=== PATIENT | female | born 1935 | race Caucasian/White ===

== ENCOUNTER → 2016-07-20 | Outpatient (CLI) | payer OTHER, BC ==
[~2016-07-20] MED LIST: ALLO300T2 PO; CHOL2000 PO; CYAN100020 PO; EDARBYCLOR PO; GABA-113 PO; LEVO25TA34 PO; LSX20 PO; METO100T7 PO; MULTCAP7 PO; OMEG10007 PO; RXC5 PO
--- NOTE | 2016-07-20 12:52 | DIAGNOSTIC IMAGING REPORT ---
ULTRASOUND OF THE CAROTID ARTERIES CLINICAL HISTORY: Hollenhorst plaque of the right eye. Visual changes. COMPARISON STUDY: No priors. TECHNIQUE: Real-time, grayscale, and color Doppler sonography of the carotid arteries is performed. Images are reviewed in the transverse and longitudinal planes. FINDINGS: Blood pressure in the right arm measures 184/107 and blood pressure in the left arm measures 205/105. The carotid arteries are patent bilaterally and demonstrate antegrade flow. There is mild echogenic shadowing atherosclerotic plaque seen bilaterally. Normal doppler arterial waveforms are seen throughout. Velocity measurements are listed below. Common carotid peak systolic velocity (cm/sec): RIGHT: 62 LEFT: 59 ICA proximal peak systolic velocity (cm/sec): RIGHT: 48 LEFT: 63 ICA mid peak systolic velocity (cm/sec): RIGHT: 61 LEFT: 56 ICA distal peak systolic velocity (cm/sec): RIGHT: 66 LEFT: 71 ICA/CC peak systolic ratio: RIGHT: 1.1 LEFT: 1.2 Antegrade flow was shown in the vertebral arteries. The external carotid arteries are patent. IMPRESSION: 1. There is no sonographic evidence of hemodynamically significant stenosis in the right or left carotid arterial system. 2. Antegrade flow is shown in the vertebral arteries. 3. Hypertension as above. Electronically signed by: Romain aVrgas M.D. 07/20/2016 12:50 PM Dictated Date/Time: 07/20/2016 12:47 PM
== END ==
LOC: C.ULTRBC 11:58
PROVIDERS: ATTEND Internal Medicine
DX: H34.211 Partial retinal artery occlusion, right eye (principal)

== ENCOUNTER → 2017-02-22 | Outpatient (CLI) | payer OTHER, BC ==
[2017-02-22 16:59] LABS: BASO % 1.3 %; BASO ABS # 0.08 K/uL (0-0.2); COMPLETE YES; EOS % 3.3 %; HEMATOCRIT 40.6 % (37-47); IG% 0.3 %; LYMPH % 37.6 %; LYMPH ABS # 2.27 K/uL (1.2-3.4); MEAN CELL VOLUME 92.5 fL (80-100); MEAN CORPUSCULAR HEMOGLOBIN 31.7 pg (25-34); MEAN CORPUSCULAR HGB CONC 34.2 g/dl (32-36); MEAN PLATELET VOLUME 11.7 fL (7.4-10.4); NEUT % 51.5 %; PLATELET COUNT 196 K/uL (130-400); RED BLOOD COUNT 4.39 M/uL (4.2-5.4); WHITE BLOOD COUNT 6.04 K/uL (4.8-10.8)
[2017-02-22 17:07] LABS: ALT/SGPT 36 U/L (12-78); AST/SGOT 20 U/L (15-37); BLOOD UREA NITROGEN 19 mg/dl (7-18); BUN/CREATININE RATIO 21.7 (10-20); CALCIUM 9.6 mg/dl (8.5-10.1); CARBON DIOXIDE 32 mmol/L (21-32); CHLORIDE 99 mmol/L (98-107); CREATININE 0.86 mg/dl (0.60-1.20); GLUCOSE 299 mg/dl (70-99); SODIUM 134 mmol/L (136-145)
[2017-02-22 17:17] LABS: ALB/GLOB RATIO 1.1 (0.9-2); ALKALINE PHOSPHATASE 142 U/L (45-117); CHOLESTEROL 145 mg/dl (0-200); CHOLESTEROL/HDL RATIO 4.8; HDL CHOLESTEROL 30 mg/dl; LDL CHOLESTEROL CALCULATED 72 mg/dl; TRIGLYCERIDES 214 mg/dl (0-150); VERY LOW DENSITY LIPOPROT CALC 43 mg/dl
[2017-02-23 05:20] LABS: ESTIMATED AVERAGE GLUCOSE 209 mg/dl; HA1C FLAG Normal (Normal)
== END | disposition home or self-care (01) ==
LOC: C.LABBC 13:15
PROVIDERS: ATTEND Internal Medicine
DX: M19.90 Unspecified osteoarthritis, unspecified site (principal); I10 Essential (primary) hypertension; M81.0 Age-related osteoporosis without current pathological fracture; R73.9 Hyperglycemia, unspecified; E03.9 Hypothyroidism, unspecified; R73.03 Prediabetes

== ENCOUNTER 2017-03-10 07:33 | Observation (INO) | payer OTHER, BC ==
[~2017-03-10] VITALS: Ht 160 cm; Wt 72.2 kg
[2017-03-10 07:38] VITALS: Ht 160 cm; Wt 72.2 kg
[2017-03-10] MEDS ORDERED: LEVO25TA5 PO (08:32)
[2017-03-10] MEDS ORDERED: TPRSR100 PO (08:32)
[2017-03-10] MEDS ORDERED: GABA1CAP4 PO (08:32)
[2017-03-10] MEDS ORDERED: CHOL100010 PO (08:32)
[2017-03-10] MEDS ORDERED: ALL100 PO (08:32)
[2017-03-10] MEDS ORDERED: EDARBI PO (08:32)
[2017-03-10] MEDS ORDERED: LSX20 PO (08:32)
[2017-03-10] MEDS ORDERED: COEN100C11 PO (08:32)
[2017-03-10] MEDS ORDERED: MULTCAP7 PO (08:32)
[2017-03-10] MEDS ORDERED: CYAN500T PO (08:32)
[2017-03-10 09:09] LABS: BASO % 0.6 %; BASO ABS # 0.04 K/uL (0-0.2); COMPLETE YES; EOS % 2.7 %; HEMATOCRIT 37.6 % (37-47); IG% 0.2 %; LYMPH % 22.1 %; MEAN CELL VOLUME 92.2 fL (80-100); MEAN CORPUSCULAR HEMOGLOBIN 31.6 pg (25-34); MEAN CORPUSCULAR HGB CONC 34.3 g/dl (32-36); MEAN PLATELET VOLUME 10.9 fL (7.4-10.4); MONO % 7.4 %; PLATELET COUNT 169 K/uL (130-400); RED BLOOD COUNT 4.08 M/uL (4.2-5.4); WHITE BLOOD COUNT 6.34 K/uL (4.8-10.8)
[2017-03-10 09:26] LABS: ALT/SGPT 30 U/L (12-78); BLOOD UREA NITROGEN 20 mg/dl (7-18); BUN/CREATININE RATIO 29.2 (10-20); CALCIUM 9.4 mg/dl (8.5-10.1); CARBON DIOXIDE 27 mmol/L (21-32); CHLORIDE 104 mmol/L (98-107); CREATININE 0.67 mg/dl (0.60-1.20); GLUCOSE 132 mg/dl (70-99); POTASSIUM 3.5 mmol/L (3.5-5.1); SODIUM 141 mmol/L (136-145)
[2017-03-10 09:37] LABS: ALB/GLOB RATIO 1.3 (0.9-2); ALKALINE PHOSPHATASE 118 U/L (45-117); AST/SGOT 23 U/L (15-37)
--- NOTE | 2017-03-10 09:47 | DIAGNOSTIC IMAGING REPORT ---
ABDOMINAL ULTRASOUND, RIGHT UPPER QUADRANT HISTORY: Epigastric pain. COMPARISON: None. FINDINGS: Exam is moderately compromised by suboptimal penetration. The common bile duct is dilated, measuring 0.9 cm in caliber. There is a 1.5 cm echogenic focus likely within the mid common bile duct which favors a common bile duct calculus. The gallbladder is surgically absent. Moderate pancreatic ductal dilatation is noted. The main pancreatic duct measures 7 mm in caliber. The pancreatic head and tail are partially obscured. There is slight prominence of the right renal collection system without talia hydronephrosis. IMPRESSION: Mild biliary ductal dilatation status post cholecystectomy. 1.5 cm echogenic shadowing structure projecting over the mid to distal common bile duct which favors a common bile duct calculus. Moderate pancreatic ductal dilatation which may be related to the suspected common bile duct calculus or occult pancreatic lesion. The findings could be correlated with liver function tests and MRCP if indicated. Electronically signed by: Russell Ramey M.D. 03/10/2017 9:46 AM Dictated Date/Time: 03/10/2017 9:36 AM
--- NOTE | 2017-03-10 10:05 | DIAGNOSTIC IMAGING REPORT ---
CHEST 2 VIEWS ROUTINE CLINICAL HISTORY: fatigue, epigastric pain pain COMPARISON STUDY: 06/27/2014 FINDINGS: Plaque atelectasis left base. Heart top limits normal in terms of size. Lungs are clear. Surgical clips of the thoracic inlet are again noted and are unchanged. IMPRESSION: Minimal platelike atelectasis left base. Otherwise negative study. The above report was generated using voice recognition software. It may contain grammatical, syntax or spelling errors. Electronically signed by: Santana Capellan M.D. 03/10/2017 10:03 AM Dictated Date/Time: 03/10/2017 10:03 AM
[2017-03-10 10:06] LABS: LYME DISEASE AB IGG NEG (NEG); LYME DISEASE AB IGM NEG (NEG)
[2017-03-10] MEDS ORDERED: SODIUM CHLORIDE 0.9% 1000ML 1,000 ML IV STA ×2 (10:35→16:24)
[2017-03-10] MEDS ORDERED: OPTIRAY 320 IV PRN (10:45)
[2017-03-10 10:58] LABS: URINE APPEARANCE CLEAR (CLEAR); URINE BILIRUBIN NEG (NEG); URINE COLOR DK YELLOW; URINE EPITHELIAL CELL AUTO >30 /lpf (0-5); URINE NITRITE NEG (NEG); URINE SPECIFIC GRAVITY 1.026 (1.000-1.030); UROBILINOGEN NEG (NEG); ZZUR CULT IF INDIC CLEAN CATCH YES
[2017-03-10 11:02] LABS: MANUAL MICROSCOPIC REQUIRED? NO; REVIEW REQ? YES
--- NOTE | 2017-03-10 11:10 | DIAGNOSTIC IMAGING REPORT ---
ABD/PELVIS IV CONTRAST ONLY CT DOSE: 739.37 mGycm HISTORY: Pain Epigastric/abdominal pain TECHNIQUE: Multiaxial CT images of the abdomen and pelvis were performed following the use of intravenous contrast. A dose lowering technique was utilized adhering to the principles of ALARA. COMPARISON STUDY: Limited ultrasound dated 03/10/2017 FINDINGS: Lung bases are clear. Prior cholecystectomy. Liver is uniform. Moderate prominence the extra hepatic common bile duct with the possibility of a 7 mm calculus within the mid to distal common duct. There is also dilatation of the pancreatic duct to maximum diameter of 6.5 mm. This calcification potentially is of the distal aspect of the pancreatic duct at its origin with the common bile duct. A well-defined mass is not easily appreciated. Left kidney as well as right kidney are negative for hydronephrosis. There is mild gastric distention. The bowel pattern overall is nonobstructive. Bladder is midline. There is no significant free fluid within the pelvic cul-de-sac. The rounded calcification measuring 2.5 cm of the pelvic inlet most likely representing calcified node. Bowel pattern again is nonobstructive throughout. There is no free fluid within the pelvic cul-de-sac. There are postoperative changes consistent with lumbar laminectomy and fusion. IMPRESSION: 1. 6 mm calcification at the juncture of the pancreatic and common bile duct. This potentially is within the common bile duct and/or less likely distal pancreatic duct 2. This appears to be creating dilatation of the pancreatic duct as well as the proximal basilar ductal system. 3. MRCP is suggested if possible. 4. Nonobstructing 9 mm calcification central right renal pelvis. The above report was generated using voice recognition software. It may contain grammatical, syntax or spelling errors. Electronically signed by: Santana Capellan M.D. 03/10/2017 11:09 AM Dictated Date/Time: 03/10/2017 11:00 AM
--- NOTE | 2017-03-10 11:49 | EMERGENCY ROOM VISIT NOTE ---
History First contact with patient: 07:44 Chief Complaint: NAUSEA Stated Complaint: NAUSEA,VOMITING - REACTION TO MEDICINE Nursing Triage Summary: pt reports GERD since end of Jan. started on metformen Feb 24 has been nauseated since that time. has had FU with PCP multiple times but is feeling no better pt reports started on omeprazole 1 week ago and this has helped the GERD History of Present Illness The patient is a 81 year old female who presents to the Emergency Room with complaints of epigastric pain times one month. The patient describes it as "intense", and states she feels bloated when she experiences the pain. The patient is having difficulty breathing due to the bloated sensation, and states she has been belching very frequently. She is unable to tolerate food or liquid , and often vomits after eating or drinking anything. She states she feels that food is fermenting in her stomach, and she eventually vomits it up. The vomiting has been worsening over the past 2 weeks. One month ago at the patient 's regular follow-up visit with her PCP, she had lab work completed which showed that the patient was diabetic. She did have a history of pre-diabetes, but this was a new, very sudden onset. The patient was started on Metformin at that time, which seemed to make her GI symptoms worse. The patient was told to start omeprazole last week due to the increase in heartburn and belching, and was eventually told to discontinue metformin yesterday. She states she has not noticed much of a difference since discontinuing the medication. The patient denies diarrhea, constipation, fever, recent illness or travel, or other associated symptoms. She denies any significant weight loss, but states she believes she may have lost a few pounds over the past few weeks. She is planning on leaving tomorrow to go to [place] for several months, so her daughter states she would like the patient's complaints addressed today if possible. Review of Systems A complete 10 point review of systems was reviewed with the patient with pertinent positives and negatives as per history of present illness. All else were negative. Past Medical/Surgical History Medical Problems: (1) CKD (chronic kidney disease), stage III (2) Gout (3) HTN (hypertension) (4) Nausea and vomiting Surgical Problems: (1) History of hysterectomy (2) History of lumbar laminectomy for spinal cord decompression (3) History of total bilateral knee replacement (4) S/P appendectomy (5) S/P carpal tunnel release (6) S/P cholecystectomy Social History Smoking Status: Never Smoker Current/Historical Medications Scheduled Allopurinol (Allopurinol), 400 MG PO DAILY Cholecalciferol (Vitamin D), 2,000 UNITS PO DAILY Coenzyme Q10 (Ubidecarenone) (Coq-10), 1 CAP PO DAILY Cyanocobalamin (Vitamin B-12), 1 TAB PO DAILY Furosemide (Furosemide), 20 MG PO DAILY Gabapentin (Gabapentin), 300 MG PO BID Levothyroxine Sodium (Levothyroxine Sodium), 25 MCG PO DAILY Metoprolol Succinate (Toprol Xl), 200 MG PO HS Multiple Vitamins W/ Minerals (Eye Vitamins), 1 CAP PO DAILY [Edarbi], 40 MG PO DAILY Physical Exam Vital Signs Date Time Temp Pulse Resp B/P (MAP) Pulse Ox O2 Delivery O2 Flow Rate FiO2 03/10/17 16:24 70 18 172/80 96 Room Air 03/10/17 14:39 82 18 176/94 97 Room Air 03/10/17 12:49 70 188/89 98 03/10/17 10:27 68 18 147/85 97 Room Air 03/10/17 07:38 36.5 84 18 190/92 96 Room Air Physical Exam VITALS: Vitals are noted on the nurse's note and reviewed by myself. Vital signs stable. GENERAL: This is a 81yo white female, in no acute distress, nondiaphoretic, well -developed well-nourished. SKIN: The skin was without rashes, erythema, edema, or bruising. There is no tenting of the skin. Capillary reflex less than 2 seconds. HEAD: Normocephalic atraumatic. EARS: External auditory canals clear, tympanic membranes pearly amaral without erythema or effusion bilaterally. EYES: Pupils equal round and reactive to light and accommodation. Conjunctivae without injection, sclerae without icterus. Extraocular movements intact. NOSE: Patent, turbinates without inflammation or discharge. No sinus tenderness. MOUTH: Mucous membranes moist. Tonsils are not enlarged. Pharynx without erythema or exudate. Uvula midline. Airway patent. Tongue does not deviate. NECK: Supple without nuchal rigidity. No lymphadenopathy. No thyromegaly. Cervical spine is nontender. No JVD. HEART: Regular rate and rhythm without murmurs gallops or rubs. LUNGS: Clear to auscultation bilaterally without wheezes, rales or rhonchi. No dullness to percussion. No retractions or accessory muscle use. ABDOMEN: Positive bowel sounds x 4. Normal tympanic percussion. Very mild tenderness in the epigastric area. Otherwise, abdomen was soft, nontender, without masses or organomegaly. Salgado sign negative. No guarding or rebound tenderness. MUSCULOSKELETAL: No muscle atrophy, erythema, or edema noted. Full range of motion without joint tenderness in all extremities. No tenderness to palpation. Normal gait. Strength 5/5 throughout. NEURO: Patient was alert and oriented to person place and time. Normal sensation to light and sharp touch. Deep tendon reflexes 2+ throughout. No focal neurological deficits. Medical Decision & Procedures ER Provider Diagnostic Interpretation: CBC was without leukocytosis, anemia, thrombocytopenia. CMP was without renal, hepatic, alert joint abnormalities. Random glucose was slightly elevated at 132. TSH was normal at 1.64. Cardiac enzymes were negative. Lipase was normal at 202. Lyme titers negative Urinalysis did show 3+ positive ketones. There were moderate leuk esterace and white blood cells, but the urine does appear contaminated with epithelial cells. The urine was positive for calcium oxalate crystals. CHEST 2 VIEWS ROUTINE CLINICAL HISTORY: fatigue, epigastric pain pain COMPARISON STUDY: 06/27/2014 FINDINGS: Plaque atelectasis left base. Heart top limits normal in terms of size. Lungs are clear. Surgical clips of the thoracic inlet are again noted and are unchanged. IMPRESSION: Minimal platelike atelectasis left base. Otherwise negative study. The above report was generated using voice recognition software. It may contain grammatical, syntax or spelling errors. Electronically signed by: Santana Capellan M.D. 03/10/2017 10:03 AM Dictated Date/Time: 03/10/2017 10:03 AM ABDOMINAL ULTRASOUND, RIGHT UPPER QUADRANT HISTORY: Epigastric pain. COMPARISON: None. FINDINGS: Exam is moderately compromised by suboptimal penetration. The common bile duct is dilated, measuring 0.9 cm in caliber. There is a 1.5 cm echogenic focus likely within the mid common bile duct which favors a common bile duct calculus. The gallbladder is surgically absent. Moderate pancreatic ductal dilatation is noted. The main pancreatic duct measures 7 mm in caliber. The pancreatic head and tail are partially obscured. There is slight prominence of the right renal collection system without talia hydronephrosis. IMPRESSION: Mild biliary ductal dilatation status post cholecystectomy. 1.5 cm echogenic shadowing structure projecting over the mid to distal common bile duct which favors a common bile duct calculus. Moderate pancreatic ductal dilatation which may be related to the suspected common bile duct calculus or occult pancreatic lesion. The findings could be correlated with liver function tests and MRCP if indicated. Electronically signed by: Russell Ramey M.D. 03/10/2017 9:46 AM Dictated Date/Time: 03/10/2017 9:36 AM ABD/PELVIS IV CONTRAST ONLY CT DOSE: 739.37 mGycm HISTORY: Pain Epigastric/abdominal pain TECHNIQUE: Multiaxial CT images of the abdomen and pelvis were performed following the use of intravenous contrast. A dose lowering technique was utilized adhering to the principles of ALARA. COMPARISON STUDY: Limited ultrasound dated 03/10/2017 FINDINGS: Lung bases are clear. Prior cholecystectomy. Liver is uniform. Moderate prominence the extra hepatic common bile duct with the possibility of a 7 mm calculus within the mid to distal common duct. There is also dilatation of the pancreatic duct to maximum diameter of 6.5 mm. This calcification potentially is of the distal aspect of the pancreatic duct at its origin with the common bile duct. A well-defined mass is not easily appreciated. Left kidney as well as right kidney are negative for hydronephrosis. There is mild gastric distention. The bowel pattern overall is nonobstructive. Bladder is midline. There is no significant free fluid within the pelvic cul-de-sac. The rounded calcification measuring 2.5 cm of the pelvic inlet most likely representing calcified node. Bowel pattern again is nonobstructive throughout. There is no free fluid within the pelvic cul-de-sac. There are postoperative changes consistent with lumbar laminectomy and fusion. IMPRESSION: 1. 6 mm calcification at the juncture of the pancreatic and common bile duct. This potentially is within the common bile duct and/or less likely distal pancreatic duct 2. This appears to be creating dilatation of the pancreatic duct as well as the proximal basilar ductal system. 3. MRCP is suggested if possible. 4. Nonobstructing 9 mm calcification central right renal pelvis. The above report was generated using voice recognition software. It may contain grammatical, syntax or spelling errors. Electronically signed by: Santana Capellan M.D. 03/10/2017 11:09 AM Dictated Date/Time: 03/10/2017 11:00 AM MRCP CLINICAL HISTORY: Pancreatic/common bile duct dilation, stone. COMPARISON STUDY: Right upper quadrant ultrasound and CT of the abdomen and pelvis performed earlier today. TECHNIQUE: Utilizing a 1.5 Nilda magnet and dedicated coil, multiplanar, multi echo imaging of the upper abdomen was performed utilizing heavily T2 weighted pulsing sequences. No intravenous contrast was administered. FINDINGS: The common bile duct is mildly dilated, measuring 9 mm. The gallbladder is surgically absent. A distal common bile calculus is noted on this exam and better depicted on CT from earlier today. This calculus measures 1.3 x 0.7 cm. Moderate dilatation of the main pancreatic duct, measuring 7 mm is noted. There are numerous dilated pancreatic ductal side branches as well. There is no peripancreatic infiltration or fluid. No additional common bile duct calculi are identified. Of note, there is marked narrowing of the portosplenic confluence and the distal superior mesenteric vein. There is moderate distention of the stomach. There may be abnormal soft tissue within the pancreaticoduodenal groove. Note is made of prominent cystic structures within the pancreaticoduodenal groove. There are few tiny nodules/lymph nodes anterior to the gastric antrum that measures 6 mm in size. There is no hydronephrosis. The spleen and adrenal glands are unremarkable. No pathologically enlarged upper abdominal lymph nodes are present. No hepatic lesions are identified on this unenhanced exam. IMPRESSION: 1. Mild biliary and moderate pancreatic ductal dilatation. 1.3 x 0.7 cm distal common bile duct calculus. Marked narrowing of the portosplenic confluence with possible abnormal soft tissue within the pancreaticoduodenal groove and moderate gastric distention. 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 Chronic pancreatitis/groove pancreatitis could result in similar imaging findings however a neoplasm is the diagnosis of exclusion and GI consultation for consideration for endoscopic ultrasound is recommended. Findings discussed with Nicole Newsome at time of dictation. 2. A few tiny lymph nodes/nodules located anterior to the gastric antrum. These are nonspecific however pathologic lymph nodes could have this appearance. Electronically signed by: Russell Ramey M.D. 03/10/2017 1:37 PM Dictated Date/Time: 03/10/2017 12:59 PM Laboratory Results 03/10/17 08:55 Red Blood Count 4.08, Mean Corpuscular Volume 92.2, Mean Corpuscular Hemoglobin 31.6, Mean Corpuscular Hemoglobin Concent 34.3, Mean Platelet Volume 10.9, Neutrophils (%) (Auto) 67.0, Lymphocytes (%) (Auto) 22.1, Monocytes (%) (Auto) 7.4, Eosinophils (%) (Auto) 2.7, Basophils (%) (Auto) 0.6, Neutrophils # (Auto) 4.25, Lymphocytes # (Auto) 1.40, Monocytes # (Auto) 0.47, Eosinophils # (Auto) 0.17, Basophils # (Auto) 0.04 03/10/17 08:55 Test 03/10/17 08:17 03/10/17 08:50 03/10/17 08:55 Creatine Kinase MB Ratio (0-3.0) Urine Color DK YELLOW Urine Appearance CLEAR (CLEAR) Urine pH 5.0 (4.5-7.5) Urine Specific [place] 1.026 (1.000-1.030) Urine Protein NEG (NEG) Urine Glucose (UA) NEG (NEG) Urine Ketones 3+ (NEG) Urine Occult Blood NEG (NEG) Urine Nitrite NEG (NEG) Urine Bilirubin NEG (NEG) Urine Urobilinogen NEG (NEG) Urine Leukocyte Esterase MODERATE (NEG) Urine WBC (Auto) 10-30 /hpf (0-5) Urine RBC (Auto) 0-4 /hpf (0-4) Urine Hyaline Casts (Auto) 1-5 /lpf (0-5) Urine Epithelial Cells (Auto) >30 /lpf (0-5) Urine Bacteria (Auto) NEG (NEG) Urine Crystals CALCIUM OXALATE (NONE White Blood Count 6.34 K/uL (4.8-10.8) Red Blood Count 4.08 M/uL (4.2-5.4) Hemoglobin 12.9 g/dL (12.0-16.0) Hematocrit 37.6 % (37-47) Mean Corpuscular Volume 92.2 fL (80-100) Mean Corpuscular Hemoglobin 31.6 pg (25-34) Mean Corpuscular Hemoglobin Concent 34.3 g/dl (32-36) Platelet Count 169 K/uL (130-400) Mean Platelet Volume 10.9 fL (7.4-10.4) Neutrophils (%) (Auto) 67.0 % Lymphocytes (%) (Auto) 22.1 % Monocytes (%) (Auto) 7.4 % Eosinophils (%) (Auto) 2.7 % Basophils (%) (Auto) 0.6 % Neutrophils # (Auto) 4.25 K/uL (1.4-6.5) Lymphocytes # (Auto) 1.40 K/uL (1.2-3.4) Monocytes # (Auto) 0.47 K/uL (0.11-0.59) Eosinophils # (Auto) 0.17 K/uL (0-0.5) Basophils # (Auto) 0.04 K/uL (0-0.2) RDW Standard Deviation 45.1 fL (36.4-46.3) RDW Coefficient of Variation 13.6 % (11.5-14.5) Immature Granulocyte % (Auto) 0.2 % Immature Granulocyte # (Auto) 0.01 K/uL (0.00-0.02) Anion Gap 10.0 mmol/L (3-11) Est Creatinine Clear Calc Drug Dose 64.8 ml/min Estimated GFR () 96.9 Estimated GFR (Non- 83.6 BUN/Creatinine Ratio 29.2 (10-20) Calcium Level 9.4 mg/dl (8.5-10.1) Total Bilirubin 0.7 mg/dl (0.2-1) Aspartate Amino Transf (AST/SGOT) 23 U/L (15-37) Alanine Aminotransferase (ALT/SGPT) 30 U/L (12-78) Alkaline Phosphatase 118 U/L (45-117) Creatine Kinase MB 2.4 ng/ml (0.5-3.6) Troponin I < 0.015 ng/ml (0-0.045) Total Protein 6.7 gm/dl (6.4-8.2) Albumin 3.8 gm/dl (3.4-5.0) Globulin 2.9 gm/dl (2.5-4.0) Albumin/Globulin Ratio 1.3 (0.9-2) Lipase 202 U/L (73-393) Carcinoembryonic Antigen < 0.5 ng/ml (0-2.5) Thyroid Stimulating Hormone (TSH) 1.640 uIu/ml (0.300-4.500) Lyme Disease IgG Antibody NEG (NEG) Lyme Disease IgM Antibody NEG (NEG) Medications Administered Medications (Trade) Dose Ordered Sig/Gabino Route Start Time Stop Time Status Last Admin Dose Admin Sodium Chloride 1,000 ml @ 999 mls/hr Q1H1M STAT IV 03/10/17 10:35 03/10/17 11:35 DC 03/10/17 10:35 999 MLS/HR Sodium Chloride 1,000 ml @ 999 mls/hr Q1H1M STAT IV 03/10/17 16:24 03/10/17 17:24 DC 03/10/17 16:33 999 MLS/HR ECG Indication: abdominal pain Rate (beats per minute): 73 Rhythm: normal sinus Findings: no acute ischemic change, no ectopy Medical Decision The patient was seen and evaluated as above. Her lab workup was overall unrevealing. Initial ultrasound did show suspicions for stone in the common bile duct which could be causing dilatation of the pancreatic duct as well. Based on the patient's symptoms, an initial barium swallow was ordered to evaluate for her regurgitation and dysphasia. I discussed the ultrasound and lab results with Dr. cooper, who did recommend a CT scan at this time. A CT scan of the abdomen and pelvis with IV contrast was ordered at this time to further evaluate the pancreas for possible mass due to the patient's symptoms. CT scan did show the stone with dilatation of the common bile duct and pancreatic duct. Again, an MRCP was recommended. At this time, I did contact Dr. Govea regarding the patient condition and because I do suspect the patient will need some sort of a procedure performed regarding these findings. He did recommend MRCP at this time, (and to cancel the barium swallow) and states he believes he may be able to perform an ERCP and endoscopy this evening. I discussed this with the patient and her daughter at bedside, and the patient states she does not wish to stay in the hospital, but potentially will stay if she is able to have procedures completed today. I discussed with her that we need to have the MRCP performed first, then Dr. Govea may be able to perform the procedure. She is in agreement to have the MRCP performed. I received a phone call from Dr. Ramey, radiologist, to discuss the findings of the MRCP. He states there is definitely a common bile duct stone, but he has noted some narrowed vessels within the stomach, moderate gastric distention, and possible abnormal soft tissue within the pancreaticoduodenal groove. He states he does suspect an adenocarcinoma, but states chronic pancreatitis could also cause similar findings. He states he would encourage workup for adenocarcinoma by GI with endoscopic ultrasound. I contacted Dr. Govea again to discuss these findings. He states that he will come see the patient when he is finished with the procedure he was going in to perform at the time. I did discuss the findings with the patient and her daughter at bedside. I advised him that there is very high suspicion for cancer due to the findings, but advised them that further testing would need to be performed for verification. I answered all questions to my ability and directed them to Dr. Govea for ongoing questions at this time. Dr. Govea did come to the emergency department to consult on the patient. He did discuss with her that he would be able to perform the ERCP and potentially the EUS this evening. The patient does agree to admission to have these tests performed. At this time, the [facility] Hospitalist group was contacted regarding admission. They do agree to accept the admission. I did advise them that I had already spoken with Dr. Govea, and he is in the process of coordinating the procedure. I did ask the patient multiple times if she needed nausea or pain medication. She declined every time. Medication Reconcilliation Current Medication List: was personally reviewed by me Blood Pressure Screening Patient's blood pressure: Elevated blood pressure Blood pressure disposition: Elevated BP felt to be situational Impression Primary Impression: Epigastric abdominal pain Additional Impressions: Regurgitation Common bile duct calculus Suspected malignant neoplasm Departure Information Dispostion Admitted as an inpatient Condition FAIR Referrals Brice Zelaya M.D. (PCP) Patient Instructions My [facility] Problem Qualifiers
--- NOTE | 2017-03-10 13:38 | DIAGNOSTIC IMAGING REPORT ---
MRCP CLINICAL HISTORY: Pancreatic/common bile duct dilation, stone. COMPARISON STUDY: Right upper quadrant ultrasound and CT of the abdomen and pelvis performed earlier today. TECHNIQUE: Utilizing a 1.5 Nilda magnet and dedicated coil, multiplanar, multi echo imaging of the upper abdomen was performed utilizing heavily T2 weighted pulsing sequences. No intravenous contrast was administered. FINDINGS: The common bile duct is mildly dilated, measuring 9 mm. The gallbladder is surgically absent. A distal common bile calculus is noted on this exam and better depicted on CT from earlier today. This calculus measures 1.3 x 0.7 cm. Moderate dilatation of the main pancreatic duct, measuring 7 mm is noted. There are numerous dilated pancreatic ductal side branches as well. There is no peripancreatic infiltration or fluid. No additional common bile duct calculi are identified. Of note, there is marked narrowing of the portosplenic confluence and the distal superior mesenteric vein. There is moderate distention of the stomach. There may be abnormal soft tissue within the pancreaticoduodenal groove. Note is made of prominent cystic structures within the pancreaticoduodenal groove. There are few tiny nodules/lymph nodes anterior to the gastric antrum that measures 6 mm in size. There is no hydronephrosis. The spleen and adrenal glands are unremarkable. No pathologically enlarged upper abdominal lymph nodes are present. No hepatic lesions are identified on this unenhanced exam. IMPRESSION: 1. Mild biliary and moderate pancreatic ductal dilatation. 1.3 x 0.7 cm distal common bile duct calculus. Marked narrowing of the portosplenic confluence with possible abnormal soft tissue within the pancreaticoduodenal groove and moderate gastric distention. 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 Chronic pancreatitis/groove pancreatitis could result in similar imaging findings however a neoplasm is the diagnosis of exclusion and GI consultation for consideration for endoscopic ultrasound is recommended. Findings discussed with Nicole Newsome at time of dictation. 2. A few tiny lymph nodes/nodules located anterior to the gastric antrum. These are nonspecific however pathologic lymph nodes could have this appearance. Electronically signed by: Russell Ramey M.D. 03/10/2017 1:37 PM Dictated Date/Time: 03/10/2017 12:59 PM
--- NOTE | 2017-03-10 15:36 | EMERGENCY ROOM VISIT NOTE ---
ED Visit Note First contact with patient: 07:44 HPI: Epigastric pain x 1 month Plan: MRCP with ?pancreatic cancer. GI evaluating. Likely admission for ERCP. I reviewed the patient's past medical history, medications, and visit nursing notes. I discussed the case with the physician field administrative assistant, examined the patient, and agree with the findings and plan as documented in the physician assistants note.
--- NOTE | 2017-03-10 16:10 | GASTROINTESTINAL CONSULTATION ---
DATE OF CONSULTATION: 03/10/2017 REQUESTING PROVIDER: Dr. Conrado Mejia. EMERGENCY ROOM PRIMARY CARE PROVIDER: Dr. Brice Zelaya M.D. CHIEF COMPLAINT: Nausea, vomiting and abnormal CT imaging and new onset diabetes. HISTORY OF PRESENT ILLNESS: Mrs. Hopkins is a 81-year-old white female presents to the Emergency Room with symptoms of increasing nausea, regurgitation, intermittent vomiting, mild weight loss and new onset diabetes over the past month or so. The patient recalls that her symptoms began shortly before Thanksgiving and has persisted over the past few weeks. Although, she had some mild intentional weight loss, she has continued to experience weight without intention over the past few weeks. She was started on metformin, although this did not change her symptoms. She denies any changes in her stool patterns, reports a colonoscopy several years ago in the [facility] and may have had polyps removed. She has not had any prior history of acute or chronic pancreatitis and has no family history of pancreatic disorders. She did have her gallbladder, appendix and transvaginal hysterectomy and unilateral oophorectomy. PAST MEDICAL HISTORY: Significant for chronic kidney disease, gout, hypertension, lumbar laminectomy, bilateral knee replacement, appendectomy, carpal tunnel and cholecystectomy. SOCIAL HISTORY: The patient denies tobacco usage and only occasionally drinks alcoholic beverages. ALLERGIES: INCLUDE ALBUTEROL. HOME MEDICATIONS: Allopurinol, cholecalciferol, vitamin B12, Coenzyme Q10, furosemide, gabapentin, levothyroxine, Toprol, multivitamins and Edarbi. FAMILY HISTORY: Unremarkable for colorectal cancer and disorders of the pancreas. REVIEW OF SYSTEMS: Otherwise noncontributory based on 13-point exam except for mentioned above. There is no history of kidney stones, history of hepatitis, peptic ulcer disease, use of NSAIDs, changes in stool or urine color or skin color. PHYSICAL EXAMINATION: VITAL SIGNS: Today on presentation to the ER, temperature 36.5, blood pressure 190/92, pulse ox 96% on room air, heart rate 84, respirations 18. GENERAL: The patient is awake, alert and oriented x3, accompanied by her daughter. HEENT: Sclerae are anicteric, conjunctivae moist. Oral mucosa moist. Normocephalic, atraumatic. NECK: There is no cervical or supraclavicular adenopathy. I do not appreciate thyromegaly. The patient does report a history of hypothyroidism. HEART: Normal S1, S2. LUNGS: Clear to auscultation without rales, rhonchi or wheezes. ABDOMEN: Soft, nontender, nondistended with positive bowel sounds. I do not appreciate a succussion splash. There are no abdominal bruits or masses. I do not appreciate ascites or shifting dullness. There are positive bowel sounds. EXTREMITIES: Show normal range of motion. There is no focal neurologic deficit. Without clubbing, cyanosis or edema. RECTAL: Deferred. LABORATORY STUDIES: On admission include white count 6.34, hemoglobin 12.9, hematocrit 37.6, and platelets 169,000. Serum chemistry - BUN and creatinine are 20 and 0.67, potassium 3.5; alkaline phosphatase mildly elevated at 118, AST 23, ALT 30, total bilirubin 0.7, calcium 9.4, albumin 3.8. Lyme disease titers were negative. Urinalysis showed moderate leukocyte esterase, 10-30 white blood cells on auto, there are calcium oxalate crystals, there are greater than 30 urinary epithelial cells. IMAGING STUDIES: Include a chest x-ray that showed minimal plate like atelectasis of the left base, otherwise normal study. Abdominal ultrasound revealed mild biliary ductal dilatation, status post cholecystectomy, there is a 1.5 cm echogenic shadowing structure in the mid to distal common bile duct consistent with a bile duct calculus, and there is moderate pancreatic duct dilation. Abdominal CT today revealed evidence of a calcification at the junction of the pancreatic and common bile duct. There is also dilation of the pancreatic duct, a 9 mm calcification in the right renal pelvis, but no specific mass identified in the pancreas on IV only CT scan. Pancreatic duct maximum diameter is 6.5 mm. MRCP demonstrates a surgically absent gallbladder, distal common bile duct of 1.3 x 0.7 cm, moderate dilation up to 7 mm of the pancreatic duct with prominent dilated side branches. There is no evidence for acute pancreatitis. Additionally, there is marked narrowing of the portosplenic confluence and distal SMV (superior mesenteric vein). The stomach is distended and a possible abnormal soft tissue mass within the pancreaticoduodenal groove with prominent cystic structures in this region. Small nodes or nodules were seen in the gastric antrum measuring 6 mm in size, spleen and adrenals unremarkable. There is no pathologic appearing lymph nodes and no hepatic lesions. IMPRESSION AND PLAN: Mrs. Hopkins has a gradual onset of nausea, regurgitation, intermittent vomiting, mild weight loss and new onset diabetes. The CT, MRI, ultrasound and imaging suggests the possibility of either a retained common bile duct stone, distal pancreatic duct stone, soft tissue mass effect in this region with changes to the portosplenic confluence. These features are worrisome for an occult malignancy, which may also be producing a duodenal compression leading to a partial gastric outlet obstruction. I believe the next best approach would be to perform an ERCP to evaluate the pancreaticobiliary system, particularly if there is a stone in the bile duct and in addition endoscopic ultrasound with fine needle aspiration to sample any suspicious areas in the region of the head or body of the pancreas. Although, there is ductal dilation noted, other features of chronic pancreatitis are not specifically identified on imaging. There is also no meaningful alcohol history or prior history of acute or acute recurrent pancreatitis. I would obtain a CA 19-9 today and CEA. Additionally, we will attempt to do ERCP and EUS today as available. There are some social considerations for the patient and that she needs to be in [place] before March 24 for a wedding and hopefully we can accomplish these studies today or no later than early part of next week. I did speak with the patient and her daughter today regarding the risks, benefits and alternatives to these procedures that include bleeding, infection, perforation and an approximate 5% chance of pancreatitis, either from an ERCP or EUS with FNA in the pancreatic region. They are agreeable to proceed. All questions answered. WES
[2017-03-10] MEDS ORDERED: ONDANSETRON INJ 2 MG/ML 2 ML VIAL IV PRN (16:30)
[2017-03-10 18:25] VITALS: BP 162/79; PULSE 77; TEMP 36.8; O2SAT 96
--- NOTE | 2017-03-10 18:29 | History and Physical ---
History & Physical Date & Time of Service: Mar 10, 2017 at 18:09 Chief Complaint: Nausea And Vomiting, Suspected Malignant Neoplasm Primary Care Physician: Brice Zelaya M.D. History of Present Illness Source: patient, family, hospital records 81 yo female who presented today with 4 weeks of vomiting. She has been unable to keep significant amount of food down. Vomiting occurs almost after every meal. However, she must be keeping some food down because she has been moving her bowels, although less frequently and smaller, formed stools. She describes a sensation of being full, heartburn after meals and either vomiting or small spit up. She has lost 7 lbs unintentionally in the past 4 weeks. Never had an issue with vomiting prior to this. She admits to some intermittent associated epigastric pain. No fever but she will have chills. No choking or coughing after vomiting, no dyspnea. Presented here to the ED with the above complaints, extensive work up performed. 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 Dr. Govea will take for EUS and possible ERCP for biopsy. Past Medical/Surgical History Medical Problems: (1) CKD (chronic kidney disease), stage III Status: Chronic (2) Gout Status: Chronic (3) HTN (hypertension) Status: Chronic Surgical Problems: (1) History of hysterectomy Status: Chronic (2) History of lumbar laminectomy for spinal cord decompression Status: Chronic (3) History of total bilateral knee replacement Status: Chronic (4) S/P appendectomy Status: Chronic (5) S/P carpal tunnel release Status: Chronic (6) S/P cholecystectomy Status: Chronic Family History patient does not know of any family history of cancer + for hypertension in parents Social History Smoking Status: Never Smoker Immunizations History of Influenza Vaccine: N/A History of Tetanus Vaccine?: Yes History of Pneumococcal: No History of Hepatitis B Vaccine: No Multi-Drug Resistant Organisms History of MDRO: No Allergies Coded Allergies: NO KNOWN DRUG ALLERGIES (Verified Allergy, Unknown, , 03/10/17) Home Medications Scheduled Allopurinol (Allopurinol), 400 MG PO DAILY Cholecalciferol (Vitamin D), 2,000 UNITS PO DAILY Coenzyme Q10 (Ubidecarenone) (Coq-10), 1 CAP PO DAILY Cyanocobalamin (Vitamin B-12), 1 TAB PO DAILY Furosemide (Furosemide), 20 MG PO DAILY Gabapentin (Gabapentin), 300 MG PO BID Levothyroxine Sodium (Levothyroxine Sodium), 25 MCG PO DAILY Metoprolol Succinate (Toprol Xl), 200 MG PO HS Multiple Vitamins W/ Minerals (Eye Vitamins), 1 CAP PO DAILY [Edarbi], 40 MG PO DAILY Review of Systems Constitutional: + chills, + weakness, + fatigue, No fever, No sweats, No weight loss, No problem reported Eyes: No worsening of vision, No eye pain, No redness, No discharge, No diplopia, No problem reported ENT: No hearing loss, No unusual epistaxis, No nasal symptoms, No sore throat, No tinnitus, No dental problems, No trouble swallowing, No problem reported Respiratory: No cough, No sputum, No wheezing, No shortness of breath, No dyspnea on exertion, No dyspnea at rest, No hemoptysis, No problem reported Cardiovascular: No chest pain, No orthopnea, No PND, No edema, No claudication , No palpitations, No problem reported Abdomen: + pain, + nausea, + vomiting, No diarrhea, No constipation, No GI bleeding Musculoskeletal: No joint pain, No muscle pain, No swelling, No calf pain, No problem reported Genitourinary - Female: No dysuria, No urinary frequency, No urinary urgency, No urinary incontinence, No urinary retention, No hematuria Neurologic: No memory loss, No paralysis, No weakness, No numbness/tingling, No vertigo, No balance problems, No problem reported Psychiatric: No depression symptoms, No anhedonism, No anxiety, No insomnia, No substance abuse, No problem reported Endocrine: No fatigue, No excessive thirst, No excessive urination, No problem reported Hematologic / Lymphatic: No abnormal bleeding/bruising, No clotting problems, No swollen lymph nodes, No night sweats, No problem reported Integumentary: No rash, No itch, No new/changing skin lesions, No color change , No bleeding, No problem reported Allergic / Immunologic: No environmental allergies, No seasonal allergies, No pet sensitivities, No food allergies, No hives, No frequent infections, No poor healing, No prolonged convalescence, No problem reported Physical Exam Vital Signs Date Time Temp Pulse Resp B/P (MAP) Pulse Ox O2 Delivery O2 Flow Rate FiO2 03/10/17 17:58 75 18 181/101 97 03/10/17 17:56 75 18 181/101 97 Room Air 03/10/17 16:24 70 18 172/80 96 Room Air 03/10/17 14:39 82 18 176/94 97 Room Air 03/10/17 12:49 70 188/89 98 03/10/17 10:27 68 18 147/85 97 Room Air 03/10/17 07:38 36.5 84 18 190/92 96 Room Air General Appearance: no apparent distress, + thin Head: normocephalic, atraumatic Eyes: normal inspection, EOMI, sclerae normal ENT: normal ENT inspection, hearing grossly normal, pharynx normal Neck: supple, no adenopathy, no JVD, trachea midline Respiratory/Chest: chest non-tender, lungs clear, normal breath sounds, no respiratory distress, no accessory muscle use Cardiovascular: regular rate, rhythm, no edema, no gallop, no JVD, no murmur, normal peripheral pulses Abdomen/GI: normal bowel sounds, soft, no organomegaly, + tenderness ( epigastric) Back: normal inspection, no CVA tenderness, no muscle spasm, normal range of motion Extremities/Musculoskelatal: normal inspection, no calf tenderness, normal capillary refill, no pedal edema, normal range of motion, pelvis stable Neurologic/Psych: cnc technician II-XII nml as tested, no motor/sensory deficits, alert, normal mood/affect, normal reflexes, oriented x 3 Skin: normal color, warm/dry, no rash Lymphatic: no adenopathy Diagnostics Laboratory Results Results Past 24 Hours Test 03/10/17 08:17 03/10/17 08:50 03/10/17 08:55 Range/Units Creatine Kinase MB Ratio 0-3.0 Urine Color DK YELLOW Urine Appearance CLEAR CLEAR Urine pH 5.0 4.5-7.5 Urine Specific [place] 1.026 1.000-1.030 Urine Protein NEG NEG Urine Glucose (UA) NEG NEG Urine Ketones 3+ NEG Urine Occult Blood NEG NEG Urine Nitrite NEG NEG Urine Bilirubin NEG NEG Urine Urobilinogen NEG NEG Urine Leukocyte Esterase MODERATE NEG Urine WBC (Auto) 10-30 0-5 /hpf Urine RBC (Auto) 0-4 0-4 /hpf Urine Hyaline Casts (Auto) 1-5 0-5 /lpf Urine Epithelial Cells (Auto) >30 0-5 /lpf Urine Bacteria (Auto) NEG NEG Urine Crystals CALCIUM OXALATE NONE PRSENT White Blood Count 6.34 4.8-10.8 K/uL Red Blood Count 4.08 4.2-5.4 M/uL Hemoglobin 12.9 12.0-16.0 g/dL Hematocrit 37.6 37-47 % Mean Corpuscular Volume 92.2 80-100 fL Mean Corpuscular Hemoglobin 31.6 25-34 pg Mean Corpuscular Hemoglobin Concent 34.3 32-36 g/dl Platelet Count 169 130-400 K/uL Mean Platelet Volume 10.9 7.4-10.4 fL Neutrophils (%) (Auto) 67.0 % Lymphocytes (%) (Auto) 22.1 % Monocytes (%) (Auto) 7.4 % Eosinophils (%) (Auto) 2.7 % Basophils (%) (Auto) 0.6 % Neutrophils # (Auto) 4.25 1.4-6.5 K/uL Lymphocytes # (Auto) 1.40 1.2-3.4 K/uL Monocytes # (Auto) 0.47 0.11-0.59 K/uL Eosinophils # (Auto) 0.17 0-0.5 K/uL Basophils # (Auto) 0.04 0-0.2 K/uL RDW Standard Deviation 45.1 36.4-46.3 fL RDW Coefficient of Variation 13.6 11.5-14.5 % Immature Granulocyte % (Auto) 0.2 % Immature Granulocyte # (Auto) 0.01 0.00-0.02 K/uL Sodium Level 141 136-145 mmol/L Potassium Level 3.5 3.5-5.1 mmol/L Chloride Level 104 98-107 mmol/L Carbon Dioxide Level 27 21-32 mmol/L Anion Gap 10.0 3-11 mmol/L Blood Urea Nitrogen 20 7-18 mg/dl Creatinine 0.67 0.60-1.20 mg/dl Est Creatinine Clear Calc Drug Dose 64.8 ml/min Estimated GFR () 96.9 Estimated GFR (Non- 83.6 BUN/Creatinine Ratio 29.2 10-20 Random Glucose 132 70-99 mg/dl Calcium Level 9.4 8.5-10.1 mg/dl Total Bilirubin 0.7 0.2-1 mg/dl Aspartate Amino Transf (AST/SGOT) 23 15-37 U/L Alanine Aminotransferase (ALT/SGPT) 30 12-78 U/L Alkaline Phosphatase 118 45-117 U/L Creatine Kinase MB 2.4 0.5-3.6 ng/ml Troponin I < 0.015 0-0.045 ng/ml Total Protein 6.7 6.4-8.2 gm/dl Albumin 3.8 3.4-5.0 gm/dl Globulin 2.9 2.5-4.0 gm/dl Albumin/Globulin Ratio 1.3 0.9-2 Lipase 202 73-393 U/L Carcinoembryonic Antigen < 0.5 0-2.5 ng/ml Thyroid Stimulating Hormone (TSH) 1.640 0.300-4.500 uIu/ml Lyme Disease IgG Antibody NEG NEG Lyme Disease IgM Antibody NEG NEG Microbiology Results 03/10/17 Urine Culture, Received Pending Diagnostic Radiology MRCP IMPRESSION: 1. Mild biliary and moderate pancreatic ductal dilatation. 1.3 x 0.7 cm distal common bile duct calculus. Marked narrowing of the portosplenic confluence with possible abnormal soft tissue within the pancreaticoduodenal groove and moderate gastric distention. 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 Chronic pancreatitis/groove pancreatitis could result in similar imaging findings however a neoplasm is the diagnosis of exclusion and GI consultation for consideration for endoscopic ultrasound is recommended. Findings discussed with Nicole Newsome at time of dictation. 2. A few tiny lymph nodes/nodules located anterior to the gastric antrum. These are nonspecific however pathologic lymph nodes could have this appearance. CT ABDOMEN/PELVIS IMPRESSION: 1. 6 mm calcification at the juncture of the pancreatic and common bile duct. This potentially is within the common bile duct and/or less likely distal pancreatic duct 2. This appears to be creating dilatation of the pancreatic duct as well as the proximal basilar ductal system. 3. MRCP is suggested if possible. 4. Nonobstructing 9 mm calcification central right renal pelvis. 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 no signs of pancreatitis on imaging, lipase only 200 patient will just be observation, would like to be discharged as soon as work up complete needs to be in [place] for on 03/24 but she was scheduled to travel sooner than that - Possible UTI: 30 WBC on UA will cover with Rocephin, follow up on culture, no fever, WBC normal Level of Care Med/Surg Resuscitation Status FULL RESUSCITATION VTE Prophylaxis VTE Risk Assessment Done? Y/N: Yes Risk Level: High Additional Copies To Brice Zealya M.D.
[2017-03-10 18:40] VITALS: BP 162/79; PULSE 77; TEMP 36.8; O2SAT 97
[2017-03-10] MEDS ORDERED: ONDA4TAB10 SL ×2 (18:55)
[2017-03-10] MEDS ORDERED: PROM12.529 PO ×2 (18:55)
--- NOTE | 2017-03-10 18:58 | Discharge Instructions ---
Discharge Instructions Date of Service Mar 10, 2017. 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 Instructions / Follow-Up Instructions / Follow-Up Medications: take Zofran ODT and Phenergan as prescribed for symptom relief Follow Up: if you do not hear from Dr. Govea's office on Monday, call to scheduled the ERCP and EUS as soon as possible his number is [phone] Current Hospital Diet Patient's current hospital diet: Discharge Diet Recommended Diet: Regular Diet (soft foods, lots of liquids) Pending Studies Studies pending at discharge: yes List of pending studies: CEA level and CA 19-9 level, tumor markers that will take days to return, Dr. Govea will get results Laboratory Results Hemoglobin A1c Test 02/22/17 13:20 Range/Units Estimated Average Glucose 209 mg/dl Hemoglobin A1c 8.9 H 4.5-5.6 % Lipid Panel Test 02/22/17 13:20 Range/Units Triglycerides Level 214 H 0-150 mg/dl Cholesterol Level 145 0-200 mg/dl HDL Cholesterol 30 mg/dl Cholesterol/HDL Ratio 4.8 LDL Cholesterol, Calculated 72 mg/dl Medical Emergencies . Who to Call and When: Medical Emergencies: If at any time you feel your situation is an emergency, please call 911 immediately. . Non-Emergent Contact Non-Emergency issues call your: Primary Care Provider, [facility] Call Non-Emergent contact if: you have any medication questions . . "Provider Documentation" section prepared by Santo Silva. . VTE Core Measure Inpt VTE Proph given/why not?: Treatment not indicated [place] Drug Monitoring Program Search Results: no issues identified
[2017-03-10] MEDS ORDERED: NSS + 20MEQ KCL 1000ML 1,000 ML IV SCH (19:11)
[2017-03-10 19:12] VITALS: BP 162/79; PULSE 77; TEMP 36.8; O2SAT 97
[2017-03-10] MEDS ORDERED: IV FLUIDS COMPLETED PRN (19:56)
[2017-03-10] MEDS ORDERED: GABAPENTIN 300 MG CAP PO SCH (20:00)
[2017-03-10] MEDS ORDERED: CEFTRIAXONE SOD INJ 1,000 MG in DEXTROSE 5% 50ML 50 ML IV SCH (20:00)
[2017-03-10] MEDS ORDERED: METOPROLOL SUCC 50MG EXT REL TAB PO SCH (21:00)
[2017-03-11] MEDS ORDERED: LEVOTHYROXINE 25 MCG TAB PO SCH (06:30)
[2017-03-11] MEDS ORDERED: ALLOPURINOL 100 MG TAB PO SCH (08:00)
[2017-03-11] MEDS ORDERED: CHOLECALCIFEROL 1000 INTER.UNIT TAB PO SCH (08:00)
--- NOTE | 2017-03-12 14:11 | Discharge Summary ---
Discharge Summary Date of Service Mar 10, 2017. Discharge Summary Admission Date: Mar 10, 2017 at 16:33 Discharge Date: Mar 10, 2017 Discharge Disposition: Home Principal Diagnosis: Pancreatic mass Problems/Secondary Diagnoses: Nausea and vomiting Partial gastric outlet obstruction Immunizations: Have You Had Influenza Vaccine: N/A History of Tetanus Vaccine?: Yes History of Pneumococcal: No History of Hepatitis B Vaccine: No Procedures: none Consultations: Gastroenterology Medication Reconciliation New Medications: Ondasetron Odt (Zofran Odt) 4 Mg Tab 4 MG SL Q4H PRN for Nausea or Vomiting, #30 TAB Promethazine Hcl (Phenergan) 12.5 Mg Tab 12.5 MG PO Q4H PRN for Nausea or Vomiting, #30 TAB Continued Medications: Allopurinol (Allopurinol) 100 Mg Tab 400 MG PO DAILY "CUT MY PILL TO GET 400 MG" Cholecalciferol (Vitamin D) 1,000 Unit Tab 2000 UNITS PO DAILY Coenzyme Q10 (Ubidecarenone) (Coq-10) Unknown Strength Cap 1 CAP PO DAILY Cyanocobalamin (Vitamin B-12) Unknown Strength Tab 1 TAB PO DAILY Furosemide (Furosemide) 20 Mg Tab 20 MG PO DAILY Gabapentin (Gabapentin) 300 Mg Cap 300 MG PO BID Levothyroxine Sodium (Levothyroxine Sodium) 25 Mcg Tab 25 MCG PO DAILY Metoprolol Succinate (Toprol Xl) 100 Mg Tabcr 200 MG PO HS Multiple Vitamins W/ Minerals (Eye Vitamins) 1 Cap Cap 1 CAP PO DAILY [Edarbi] () 40 MG PO DAILY MEDICATION DOES NOT COME UP IN SURESCRIPTS WHEN I SEARCH IT, BUT IT IS LISTED IN THE EXTENDED MED HISTORY 40 MG. Discharge Exam Patient was informed that the ERCP and EUS would not be performed in the evening on 03/10 and she wanted to be discharged since it would not happen over the weekend either. Discussed with Dr. Govea, will try to get scheduled the following week. Review of Systems: Constitutional: + weight loss, No fever, No chills, No sweats, No weakness, No fatigue, No problem reported Eyes: No worsening of vision, No eye pain, No redness, No discharge, No diplopia, No problem reported ENT: No hearing loss, No unusual epistaxis, No nasal symptoms, No sore throat, No tinnitus, No dental problems, No trouble swallowing, No problem reported Respiratory: No cough, No sputum, No wheezing, No shortness of breath, No dyspnea on exertion, No dyspnea at rest, No hemoptysis, No problem reported Cardiovascular: No chest pain, No orthopnea, No PND, No edema, No claudication, No palpitations, No problem reported Abdomen: + pain (epigastric), + nausea, + vomiting, No diarrhea, No constipation, No GI bleeding, No problem reported Musculoskeletal: No joint pain, No muscle pain, No swelling, No calf pain, No problem reported Genitourinary - Female: No dysuria, No urinary frequency, No urinary urgency , No urinary incontinence, No urinary retention, No hematuria Neurologic: No memory loss, No paralysis, No weakness, No numbness/tingling , No vertigo, No balance problems, No problem reported Psychiatric: No depression symptoms, No anhedonism, No anxiety, No insomnia , No substance abuse, No problem reported Endocrine: No fatigue, No excessive thirst, No excessive urination, No problem reported Hematologic / Lymphatic: No abnormal bleeding/bruising, No clotting problems , No swollen lymph nodes, No night sweats, No problem reported Integumentary: No rash, No itch, No new/changing skin lesions, No color change, No bleeding, No problem reported Physical Exam: General Appearance: WD/WN, no apparent distress Eyes: normal inspection, EOMI, sclerae normal ENT: normal ENT inspection, hearing grossly normal, pharynx normal Neck: supple, no adenopathy, no JVD, trachea midline Respiratory/Chest: chest non-tender, lungs clear, normal breath sounds, no respiratory distress, no accessory muscle use Cardiovascular: regular rate, rhythm, no edema, no gallop, no JVD, no murmur , normal peripheral pulses Abdomen / GI: normal bowel sounds, soft, no organomegaly, + tenderness ( epigastric) Extremities: normal inspection, no calf tenderness, normal capillary refill , no pedal edema, normal range of motion, pelvis stable Neurologic/Psychiatric: advertising director II-XII nml as tested, no motor/sensory deficits , alert, normal mood/affect, normal reflexes, oriented x 3 Skin: normal color, warm/dry, no rash Hospital Course 81 yo female with 4 weeks of vomiting, weight loss, epigastric pain, found to have a 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 - 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 Govea for ERCP and EUS Total Time Spent: Greater than 30 minutes This includes examination of the patient, discharge planning, medication reconciliation, and communication with other providers. Discharge Instructions Please refer to the electronic Patient Visit Report (Discharge Instructions) for additional information. Follow-Up Dr. Govea this week for ERCP and EUS/biopsy Additional Copies To Brice Zelaya M.D.; Abdiel Govea M.D.
--- NOTE | 2017-03-13 09:17 | CONSULTATION REPORT ---
DATE OF CONSULTATION: 03/10/2017 ADDENDUM Plans to perform an ERCP and possibly EUS this evening were canceled by anesthesiology. Prior to starting a different inpatient that was also delayed due to OR issues, I asked if this case was to follow. Anesthesia replied that there was no chance of performing this procedure this evening. I also asked as to whether the backup anesthesiologist was available and was informed that this could not happen. As an alternative, I was ready, willing and available at any time if anesthesia would provide coverage. I also required as to whether it would be possible to perform this Monday, at least ERCP, and they informed me that they have already cases on the board and this would not happen until at least the late morning or more likely the afternoon. I contacted the floor nurse in charge of the patient who had just received the patient from the Emergency Room with this information. The patient ultimately chose to leave the hospital and was agreeable to have the procedure performed the next week (I informed the nurse and Dr. Silva that I would not be able to perform these tests until the earliest Monday provided that the operating room management would permit). He was aware and I will made efforts to arrange for Monday at 3:00 p.m. for ERCP and possible EUS with cytotechnician present. WES
== END 2017-03-10 19:56 | disposition home or self-care (01) ==
LOC: C.EDB 07:34 → C.4E 16:33 → EDBEDREQ 16:42 → EDBEDREQSVC 16:57 → ENRESERV 17:38
PROVIDERS: ADMIT Internal Medicine; ATTEND Internal Medicine
DX: K86.89 Other specified diseases of pancreas (principal); K56.699 Other intestinal obstruction unspecified as to partial versus complete obstruction; R11.2 Nausea with vomiting, unspecified; N18.3 Chronic kidney disease, stage 3 (moderate); I12.9 Hypertensive chronic kidney disease with stage 1 through stage 4 chronic kidney disease, or unspecified chronic kidney disease; M10.9 Gout, unspecified; Z90.710 Acquired absence of both cervix and uterus; Z98.890 Other specified postprocedural states; Z79.899 Other long term (current) drug therapy; Z96.653 Presence of artificial knee joint, bilateral; Z90.89 Acquired absence of other organs; Z90.49 Acquired absence of other specified parts of digestive tract

== ENCOUNTER 2017-03-14 12:45 | Observation (INO) | payer OTHER, BC ==
[~2017-03-14] VITALS: Ht 160 cm; Wt 71.3 kg
[~2017-03-14 12:45] MED LIST changes: +ALL100 PO; +CHOL100010 PO; +COEN100C11 PO; +CYAN500T PO; +EDARBI PO; +GABA1CAP4 PO; +LEVO25TA5 PO; +ONDA4TAB10 SL; +PROM12.529 PO; +TPRSR100 PO
[2017-03-14 13:22] VITALS: BP 179/96; PULSE 83; TEMP 36.8; O2SAT 98; BMI 27.0
[2017-03-14] MEDS ORDERED: PRLSR20 PO ×2 (13:28)
[2017-03-14] MEDS ORDERED: LIDOCAINE HCL 2% 2 ML VIAL (20MG/ML) ONE (14:56)
[2017-03-14] MEDS ORDERED: PROPOFOL IV EMULSION 10 MG/ML 20 ML VIAL IV ONE (14:56)
[2017-03-14] MEDS ORDERED: FENTANYL CITRATE INJ 50 MCG/1 ML 2 ML VIAL ONE (14:56)
[2017-03-14] MEDS ORDERED: SODIUM CHLORIDE 0.9% 500ML 500 ML IV ONE ×2 (15:12)
--- NOTE | 2017-03-14 15:14 | Endo History and Physical ---
History & Physical Date of Service: Mar 14, 2017. Chief Complaint: N/V abnormal imaging, ? panc mass; CBD stone Referring Physician: History of Present Illness N/V abd pain, CBD stone, panc mass Past Medical History Arthritis, Hypertension, Thyroid Disease Past Surgical History Hx Cardiac Surgery: No Hx Post-Op Nausea and Vomiting: Yes Hx Cancer Surgery: No Hx Thoracic Surgery: No Hx Urinary Tract Surgery: No Social History Smoking Status: Never Smoker Hx Substance Use: No Hx Alcohol Use: Yes (1-2 wine/month) Allergies Uncoded Allergies: CONTRAST DYE (Allergy, Intermediate, RASH, 03/14/17) Current Medications Reported Home Medications Medications Dose Route/Sig Max Daily Dose Days Date Category Dose Instructions Prilosec (Omeprazole) 20 Mg Capcr Unknown Dose PO DAILY 03/14/17 Reported Phenergan (Promethazine Hcl) 12.5 Mg Tab 12.5 Mg PO Q4H PRN 03/10/17 Rx Zofran Odt (Ondansetron HCl) 4 Mg Tab 4 Mg SL Q4H PRN 03/10/17 Rx Coq-10 (Coenzyme Q10 (Ubidecarenone)) Unknown Strength Cap 1 Cap PO DAILY 03/10/17 Reported Eye Vitamins (Multiple Vitamins W/ Minerals) 1 Cap Cap 1 Cap PO DAILY 03/10/17 Reported [Edarbi] 40 Mg PO DAILY 03/10/17 Reported MEDICATION DOES NOT COME UP IN SURESCRIPTS WHEN I SEARCH IT, BUT IT IS LISTED IN THE EXTENDED MED HISTORY 40 MG. Toprol Xl (Metoprolol Succinate) 100 Mg Tabcr 200 Mg PO HS 03/10/17 Reported Levothyroxine Sodium 25 Mcg Tab 25 Mcg PO DAILY 03/10/17 Reported Gabapentin 300 Mg Cap 300 Mg PO BID 03/10/17 Reported Furosemide 20 Mg Tab 20 Mg PO DAILY 03/10/17 Reported Vitamin B-12 (Cyanocobalamin) Unknown Strength Tab 1 Tab PO DAILY 03/10/17 Reported Vitamin D (Cholecalciferol) 1,000 Unit Tab 2,000 Units PO DAILY 03/10/17 Reported Allopurinol 100 Mg Tab 400 Mg PO DAILY 03/10/17 Reported "CUT MY PILL TO GET 400 MG" Vital Signs Weight (Kilograms): 71.3 Height (Feet): 5 Height (Inches): 3 Date Time Temp Pulse Resp B/P (MAP) Pulse Ox O2 Delivery O2 Flow Rate FiO2 03/14/17 13:22 36.8 83 18 179/96 (123) 98 Room Air Physical Exam General Appearance: WD/WN, no apparent distress Respiratory/Chest: Auscultation: breath sounds normal Cardiovascular: Heart Auscultation: RRR Abdomen: Bowel Sounds: normal Inspection & Palpation: soft, non-distended, no tenderness, guarding & rebound Assessment and Plan EUS with FNA and ERCP
[2017-03-14] MEDS ORDERED: DEXAMETHASONE SOD INJ 4 MG/ML VIAL ONE (15:59)
[2017-03-14] MEDS ORDERED: ONDANSETRON INJ 2 MG/ML 2 ML VIAL ONE (15:59)
[2017-03-14] MEDS ORDERED: EpHEDrine SULFATE 50MG/5ML SYR ONE (16:10)
[2017-03-14] MEDS ORDERED: EpHEDrine SULFATE INJ 50 MG/ML AMP IV PRN (17:15)
[2017-03-14] MEDS ORDERED: ATROPINE SULFATE 0.1 MG/ML 5ML SYR IV PRN (17:15)
[2017-03-14] MEDS ORDERED: MEPERIDINE HCL 25 MG/ML CARP IV PRN (17:15)
[2017-03-14] MEDS ORDERED: ONDANSETRON INJ 2 MG/ML 2 ML VIAL IV PRN ×2 (17:15→19:00)
[2017-03-14] MEDS ORDERED: HYDROmorphone INJ 1 MG/ML SYR IV PRN (17:15)
[2017-03-14] MEDS ORDERED: FENTANYL CITRATE INJ 50 MCG/1 ML 2 ML VIAL IV PRN (17:15)
[2017-03-14] MEDS: LABETALOL HCL IV 5 MG/ML 20ML IV PRN ×2 (18:16→18:21)
--- NOTE | 2017-03-14 18:33 | Anesthesiology Progress Note ---
Anesthesia Post Op Note Date & Time Mar 14, 2017 at 18:32 Vital Signs Pain Intensity: 2 Vital Signs Past 12 Hours Date Time Temp Pulse Resp B/P (MAP) Pulse Ox O2 Delivery O2 Flow Rate FiO2 03/14/17 18:20 80 21 174/86 97 Room Air 03/14/17 18:10 83 15 176/91 94 Room Air 03/14/17 18:00 85 16 188/99 100 Oxymask 10 03/14/17 17:50 88 17 153/80 100 Oxymask 10 03/14/17 17:41 36.0 94 24 179/102 100 Oxymask 10 03/14/17 13:22 36.8 83 18 179/96 (123) 98 Room Air Notes Mental Status: alert / awake / arousable, participated in evaluation Pt Amnestic to Procedure: Yes Nausea / Vomiting: adequately controlled Pain: adequately controlled Airway Patency, RR, SpO2: stable & adequate BP & HR: stable & adequate Hydration State: stable & adequate Anesthetic Complications: no major complications apparent
--- NOTE | 2017-03-14 19:48 | GI REPORT ---
Procedure Date: 03/14/2017 4:28 PM Procedure: Upper EUS Indications: Suspected mass in pancreas on CT scan, Obstruction of bile duct on CT Medicines: General Anesthesia Complications: No immediate complications. Estimated blood loss: Minimal. Estimated Blood Loss: Estimated blood loss was minimal. Procedure: Pre-Anesthesia Assessment: - Prior to the procedure, a History and Physical was performed, and patient medications and allergies were reviewed. The patient's tolerance of previous anesthesia was also reviewed. The risks and benefits of the procedure and the sedation options and risks were discussed with the patient. All questions were answered, and informed consent was obtained. Prior Anticoagulants: The patient has taken no previous anticoagulant or antiplatelet agents. ASA Grade Assessment: II - A patient with mild systemic disease. After reviewing the risks and benefits, the patient was deemed in satisfactory condition to undergo the procedure. After obtaining informed consent, the endoscope was passed under direct vision. Throughout the procedure, the patient's blood pressure, pulse, and oxygen saturations were monitored continuously. The Endosonoscope was introduced through the mouth, and advanced to the duodenal bulb. The upper EUS was extremely difficult due to abnormal anatomy, presence of food, presence of bezoar and stricture. The patient tolerated the procedure well. Findings: Endoscopic Finding : The examined esophagus was normal. A medium amount of food (residue) was found in the entire examined stomach. The duodenal bulb was normal. 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 Endosonographic Finding : The esophagus, stomach and duodenum and adjacent structures were visualized endosonographically. There was no sign of significant endosonographic abnormality in the esophagus. No pathologic lymphadenopathy was identified. Endosonographic images of the stomach were unremarkable. No pathologic lymphadenopathy was identified. There was no sign of significant endosonographic abnormality in the duodenal bulb. No pathologic lymphadenopathy was identified. There was dilation in the common bile duct which measured up to 10 mm. There was no sign of significant endosonographic abnormality in the left lobe of the liver. No focal pathology and no pathologic lymphadenopathy were identified. The pancreatic duct had a dilated endosonographic appearance in the genu of the pancreas, in the body of the pancreas and in the side branches of the pancreatic duct. The pancreatic duct measured up to 6 mm in diameter. Pancreatic parenchymal abnormalities were noted in the genu of the pancreas and in the pancreatic body. These consisted of diffuse echogenicity and lobularity. Fine needle aspiration for cytology was performed. Color Doppler imaging was utilized prior to needle puncture to confirm a lack of significant vascular structures within the needle path. Six passes were made with the 22 gauge needle using a transgastric approach and using a transduodenal approach. A stylet was used. A kid club attendant was present to evaluate the adequacy of the specimen. The cellularity of the specimen was adequate. Final cytology results are pending. Verification of patient identification for the specimen was done by the physician and technician support engineer using the patient's name and medical record number. Impression: - Normal esophagus. - A medium amount of food (residue) in the stomach. - Normal duodenal bulb. - Acquired duodenal stenosis. - There was no sign of significant pathology in the esophagus. - Endosonographic images of the stomach were unremarkable. - There was no sign of significant pathology in the duodenal bulb. - There was dilation in the common bile duct which measured up to 10 mm. - There was no evidence of significant pathology in the left lobe of the liver. - The pancreatic duct had a dilated endosonographic appearance in the genu of the pancreas, in the body of the pancreas and in the side branches of the pancreatic duct. The pancreatic duct measured up to 6 mm in diameter. - Pancreatic parenchymal abnormalities consisting of diffuse echogenicity and lobularity were noted in the genu of the pancreas and in the pancreatic body. Fine needle aspiration performed. Recommendation: - Observe patient in PACU for possible discharge same day. - Continue present medications. - Await cytology results. - See dictation in [facility]. MD Abdiel Montes MD 03/14/2017 7:47:56 PM This report has been signed electronically. Note Initiated On: 03/14/2017 4:28 PM I attest to the content of the Intraoperative Record and orders documented therein, exceptions below
--- NOTE | 2017-03-14 19:52 | GI REPORT ---
Procedure Date: 03/14/2017 3:39 PM Procedure: Upper GI endoscopy Indications: Abnormal CT of the GI tract, Abnormal MRI of the GI tract Medicines: General Anesthesia Complications: No immediate complications. Estimated blood loss: Minimal. Estimated Blood Loss: Estimated blood loss was minimal. Procedure: Pre-Anesthesia Assessment: - Prior to the procedure, a History and Physical was performed, and patient medications and allergies were reviewed. The patient's tolerance of previous anesthesia was also reviewed. The risks and benefits of the procedure and the sedation options and risks were discussed with the patient. All questions were answered, and informed consent was obtained. Prior Anticoagulants: The patient has taken no previous anticoagulant or antiplatelet agents. ASA Grade Assessment: II - A patient with mild systemic disease. After reviewing the risks and benefits, the patient was deemed in satisfactory condition to undergo the procedure. After obtaining informed consent, the endoscope was passed under direct vision. Throughout the procedure, the patient's blood pressure, pulse, and oxygen saturations were monitored continuously. The scope was introduced through the mouth, and advanced to the duodenal bulb. The upper GI endoscopy was accomplished without difficulty. The patient tolerated the procedure well. Findings: The examined esophagus was normal. A medium amount of food (residue) was found in the entire examined stomach. The duodenal bulb was normal. An acquired malignant-appearing, intrinsic severe stenosis was found in the first part of the duodenum and was non-traversed. Biopsies were taken with a cold forceps for histology. Verification of patient identification for the specimen was done by the physician and fingerprint technician using the patient's name and medical record number. The cardia and gastric fundus were normal on retroflexion. Impression: - Normal esophagus. - A medium amount of food (residue) in the stomach. - Normal duodenal bulb. - Acquired duodenal stenosis. Biopsied. Recommendation: - Observe patient in same day observation unit for observation. - Clear liquid diet today. - Continue present medications. - Await pathology results. - The findings and recommendations were discussed with the patient's family. - See dictation in [facility] for additional details. MD Abdiel Montes MD 03/14/2017 7:52:00 PM This report has been signed electronically. Note Initiated On: 03/14/2017 3:39 PM I attest to the content of the Intraoperative Record and orders documented therein, exceptions below
[2017-03-14 20:10] VITALS: BP 197/97; PULSE 75; TEMP 36.5; O2SAT 98; Ht 160 cm; Wt 71.3 kg
[2017-03-14 20:50] VITALS: BP 170/80; PULSE 81; TEMP 36.4; O2SAT 96
[2017-03-14] MEDS ORDERED: METOPROLOL SUCC 50MG EXT REL TAB PO SCH (21:00)
[2017-03-14] MEDS: ACETAMINOPHEN 325 MG TAB PO PRN (21:02)
[2017-03-14 21:10] VITALS: BP 174/82; PULSE 79; TEMP 36.3; O2SAT 98
[2017-03-14] MEDS ORDERED: LOSARTAN POTASSIUM 25 MG TAB PO ONE (21:45)
[2017-03-14] MEDS ORDERED: IV FLUIDS COMPLETED PRN (22:00)
[2017-03-14] MEDS: GABAPENTIN 300 MG CAP PO SCH (22:10)
[2017-03-14 22:17] VITALS: BP 175/92; PULSE 83; TEMP 36.5; O2SAT 97
--- NOTE | 2017-03-14 22:40 | GASTROINTESTINAL CONSULTATION ---
DATE OF CONSULTATION: 03/14/2017 Gastrointestinal update for observation status following EGD/EUS. HISTORY OF PRESENT ILLNESS: The patient underwent an outpatient EGD/EUS this afternoon. The patient was recently hospitalized, on Monday, through the Emergency Room with recurrent nausea, vomiting, regurgitation for a few weeks in duration with recent onset of diabetes. Imaging studies identified several issues that included probable retained common bile duct stone, [id number] bile duct dilation, markedly dilated pancreatic main duct and side branch changes, probable mass in the head region of the pancreas, compression of the portal splenic confluence region. The patient had not been experiencing any meaningful weight loss over the past several weeks or months, although did report a 10-pound weight loss 1 year ago. The patient has a history of hypertension, on an angiotensin german, low metoprolol and was newly diagnosed with diabetes with a blood sugar of nearly 300, although no medications were started at this time. During today's attempts of a high-grade post-bulbar stricture, malignant appearing, was encountered and would not permit traversing with a standard gastroscope, ERCP scope or the ultrasound scope. Biopsies were taken from the post-bulbar stenosis and are pending at this time. ERCP could not be accomplished because of stricture, but an EUS with a distal extend to the bulb was performed. No appreciable lymph nodes were identified, however, there is an indiscrete, inhomogeneous appearance to the pancreas with multiple dilated ducts that are present both near the genu as well as in the body of the pancreas. FNA was taken from these 2 sites and the results are pending at this time. During her hospitalization on Monday, a CEA was negative, but a CA-19-9 was 117. Her LFTs actually were normal with a bilirubin 0.7, direct 0.1, AST 23, ALT 13, alkaline phosphatase of 118, which is minimally elevated. Her hemoglobin A1c on 02/22/2017 was 8.9. The patient also has a copious amount of retained gastric contents, consistent with her post-bulbar stenosis. The patient was admitted for observation, given the lengthy procedure today and to exclude any concerns for perforation, pancreatitis or the potential for aspiration, given the retained gastric contents. The patient received Cipro 400 mg IV during the procedure prior to FNA. Regarding the patient's plans: 1. I spoke with the patient's daughter, Rimma, at length this evening and addressed the many issues surrounding her mother's care. Ideally, it would be best to have the patient stay or be referred for the obstruction, pancreatic process, retained common bile duct stones and ductal dilation. However, the patient has strong desires to go to [place], outside of [place], to celebrate the holidays with family as well as for the marriage of her daughter. Rimma has been very active in pursuing options following the return and has appointments at [facility], outside of [place], April 04 with surgical oncologist and medical oncologist. Some of the issues that were discussed include achieving a diagnosis for the type of malignancy suspected, treatment options based on staging, the necessity of possible luminal stenting, and/or a gastrojejunostomy to bypass the duodenal obstruction, if this cannot be primarily resected. Her family support would be with her daughter, Rimma, outside of [place] and this makes caring for her achievable. For tonight and for the next 2 weeks, the patient clearly wants to get down to [place] for these events and I provided the name of a blanking machine operator in [facility], Dr. Evelin Acharya, , and I left message on her answering service for her to contact me tomorrow, so I can discuss the case, should she need any GI or acute care while visiting over the next couple of weeks. I told the patient and her daughter that it would be very important for the patient to maintain her nourishment and hydration with clears and full liquids only and small frequent amounts throughout the day as opposed to larger meals, which may be prone to regurgitation. She should strictly avoid any types of food that has a residue component to it, as this is likely create more retained gastric contents. She should resume her blood pressure medicine, which she has not been taking for the last week and I asked them to monitor her blood sugars at least twice a day by fingerstick to ensure that her numbers are not in poor control. She currently is not on any antidiabetic medication. She knows that while in the [facility], if she is experiencing any features of obstruction, fever, chills, development of jaundice, that she should present to the nearest Emergency Room and hopefully, with Dr. Acharya, as a contact, can help facilitate her care. Once back in the area, she will plan to be in the [place] area and have her care at [facility]. Some of the options may include the need for interventional radiology to approach the bile duct percutaneously, although currently, the patient is not jaundiced and did not have features of biliary obstruction, based on her liver tests last Monday. I will contact the family once the biopsies and brushings are available from this evening's procedures. However, if this information is inconclusive, additional diagnostics may be necessary and can be arranged at [facility]. All questions answered for the patient and her daughter, Rimma. If you have any questions, please do not hesitate to contact me Thank you for allowing me to participate in the care of this very pleasant lady and delightful family. 03/15/17 Addendum: I did receive a call back from Dr Acharya's office and although she is currently unavailable , the office is aware of the matter and provided another provider, Dr Carter (?spelling). The patient can call if she is having problems and can be seen. WES
--- NOTE | 2017-03-14 23:03 | History and Physical ---
History & Physical Date & Time of Service: Mar 14, 2017 at 22:53 Chief Complaint: Common Bile Duct Stones, Mass Primary Care Physician: Brice Zelaya M.D. History of Present Illness Source: patient, hospital records 81 yo female who presented to the ED on 03/10 with 4 weeks of vomiting. She has been unable to keep significant amount of food down. Vomiting occurs almost after every meal. However, she must be keeping some food down because she has been moving her bowels, although less frequently and smaller, formed stools. She describes a sensation of being full, heartburn after meals and either vomiting or small spit up. She has lost 7 lbs unintentionally in the past 4 weeks. Never had an issue with vomiting prior to this. She admits to some intermittent associated epigastric pain. No fever but she will have chills. No choking or coughing after vomiting, no dyspnea. Presented here to the ED with the above complaints, extensive work up performed. 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 Today, Dr. Govea took for ERCP. However, the stricture at the duodenum was so severe that a scope could not be passed into the 2nd portion of the duodenum. There was significant amount of liquid and food in her stomach. EUS was performed at the gastric bulb and biopsies were taken. Dr. Govea asked to observe patient overnight and she can most likely go home first thing in the morning. Past Medical/Surgical History Medical Problems: (1) CKD (chronic kidney disease), stage III Status: Chronic (2) Gout Status: Chronic (3) HTN (hypertension) Status: Chronic Surgical Problems: (1) History of hysterectomy Status: Chronic (2) History of lumbar laminectomy for spinal cord decompression Status: Chronic (3) History of total bilateral knee replacement Status: Chronic (4) S/P appendectomy Status: Chronic (5) S/P carpal tunnel release Status: Chronic (6) S/P cholecystectomy Status: Chronic Family History patient does not know of any family history of cancer + for hypertension in parents Social History Smoking Status: Never Smoker Alcohol Use: none Housing status: lives with family Immunizations History of Influenza Vaccine: N/A History of Tetanus Vaccine?: Yes History of Pneumococcal: No History of Hepatitis B Vaccine: No Multi-Drug Resistant Organisms History of MDRO: No Allergies Coded Allergies: Iodinated Diagnostic Agents (Verified Allergy, Unknown, RASH FROM CONTRAST DYE, 03/14/17) Home Medications Scheduled Allopurinol (Allopurinol), 400 MG PO DAILY Cholecalciferol (Vitamin D), 2,000 UNITS PO DAILY Coenzyme Q10 (Ubidecarenone) (Coq-10), 1 CAP PO DAILY Cyanocobalamin (Vitamin B-12), 1 TAB PO DAILY Furosemide (Furosemide), 20 MG PO DAILY Gabapentin (Gabapentin), 300 MG PO BID Levothyroxine Sodium (Levothyroxine Sodium), 25 MCG PO DAILY Metoprolol Succinate (Toprol Xl), 200 MG PO HS Multiple Vitamins W/ Minerals (Eye Vitamins), 1 CAP PO DAILY Omeprazole (Prilosec), Unknown Dose PO DAILY [Edarbi], 40 MG PO DAILY Scheduled PRN Ondasetron Odt (Zofran Odt), 4 MG SL Q4H PRN for Nausea or Vomiting Promethazine Hcl (Phenergan), 12.5 MG PO Q4H PRN for Nausea or Vomiting Review of Systems Constitutional: + weight loss, + weakness, + fatigue, No fever, No chills, No sweats, No problem reported ENT: No hearing loss, No unusual epistaxis, No nasal symptoms, No sore throat, No tinnitus, No dental problems, No trouble swallowing, No problem reported Respiratory: No cough, No sputum, No wheezing, No shortness of breath, No dyspnea on exertion, No dyspnea at rest, No hemoptysis, No problem reported Cardiovascular: No chest pain, No orthopnea, No PND, No edema, No claudication , No palpitations, No problem reported Abdomen: + pain (epigastric), + nausea, + vomiting, No diarrhea, No constipation, No GI bleeding, No problem reported Musculoskeletal: No joint pain, No muscle pain, No swelling, No calf pain, No problem reported Genitourinary - Female: No dysuria, No urinary frequency, No urinary urgency, No urinary incontinence, No urinary retention, No hematuria Neurologic: No memory loss, No paralysis, No weakness, No numbness/tingling, No vertigo, No balance problems, No problem reported Psychiatric: No depression symptoms, No anhedonism, No anxiety, No insomnia, No substance abuse, No problem reported Endocrine: No fatigue, No excessive thirst, No excessive urination, No problem reported Integumentary: No rash, No itch, No new/changing skin lesions, No color change , No bleeding, No problem reported Allergic / Immunologic: No environmental allergies, No seasonal allergies, No pet sensitivities, No food allergies, No hives, No frequent infections, No poor healing, No prolonged convalescence, No problem reported Physical Exam Vital Signs Date Time Temp Pulse Resp B/P (MAP) Pulse Ox O2 Delivery O2 Flow Rate FiO2 03/14/17 22:17 36.5 83 16 175/92 (119) 97 Room Air 03/14/17 21:10 36.3 79 16 174/82 (112) 98 Room Air 03/14/17 20:50 36.4 81 16 170/80 (110) 96 Room Air 03/14/17 20:10 36.5 75 16 197/97 Room Air 03/14/17 20:10 36.5 75 16 197/97 (130) 98 Room Air 03/14/17 20:10 98 Room Air 03/14/17 19:45 77 18 174/94 98 Room Air 03/14/17 19:30 79 16 180/88 97 Room Air 03/14/17 19:15 74 14 150/90 97 Room Air 03/14/17 19:00 75 19 165/85 98 Room Air 03/14/17 18:45 79 19 181/91 97 Room Air 03/14/17 18:30 36.2 81 24 159/88 99 Room Air 03/14/17 18:20 80 21 174/86 97 Room Air 03/14/17 18:10 83 15 176/91 94 Room Air 03/14/17 18:00 85 16 188/99 100 Oxymask 10 03/14/17 17:50 88 17 153/80 100 Oxymask 10 03/14/17 17:41 36.0 94 24 179/102 100 Oxymask 10 03/14/17 13:22 36.8 83 18 179/96 (123) 98 Room Air General Appearance: no apparent distress, + thin Head: normocephalic, atraumatic Eyes: normal inspection, EOMI, sclerae normal ENT: normal ENT inspection, hearing grossly normal, pharynx normal Neck: supple, no adenopathy, no JVD, trachea midline Respiratory/Chest: chest non-tender, lungs clear, normal breath sounds, no respiratory distress, no accessory muscle use Cardiovascular: regular rate, rhythm, no edema, no gallop, no JVD, no murmur, normal peripheral pulses Abdomen/GI: normal bowel sounds, soft, no organomegaly, + tenderness ( epigastric) Back: normal inspection, no CVA tenderness, no muscle spasm, normal range of motion Extremities/Musculoskelatal: normal inspection, no calf tenderness, normal capillary refill, no pedal edema, normal range of motion Neurologic/Psych: dental patient coordinator II-XII nml as tested, alert, normal mood/affect, normal reflexes, oriented x 3, + motor weakness Skin: normal color, warm/dry, no rash Diagnostics Laboratory Results Results Past 24 Hours Test 03/14/17 13:19 03/14/17 19:42 Range/Units Bedside Glucose 95 148 70-90 mg/dl Impression Assessment and Plan 81 yo female with recent findings of pancreatic head mass causing gastric outlet obstruction, today she had EGD with plans for ERCP but could not be completed due to stricture/compression from mass in the duodenum - Pancreatic mass causing duodenal stricture, gastric outlet obstruction ERCP cancelled since scope could not enter duodenum EUS performed with biopsies taken, results pending on prior stay, she had CEA which was normal, CA 19-[address] Govea recommends small, liquid meals she reports that the Zofran ODT preventing vomiting, she always feels full and slightly nauseated check labs in the AM if patient is stable she can go home in the early to mid morning Dr. Govea says that she DOES NOT have to be seen by him tomorrow in order to go home wants to watch overnight as precaution she has plans to go to [place] with family for a wedding she is going to resume care for her pancreatic mass at [facility] in [place] the first week in March, her daughter lives in [place] Level of Care Med/Surg Advanced Directives Existing Living Will: Yes Existing Power of Check Processor: Yes Resuscitation Status FULL RESUSCITATION VTE Prophylaxis VTE Risk Assessment Done? Y/N: Yes Risk Level: Low Given or contraindicated: Treatment not indicated
[2017-03-14 23:10] VITALS: BP 144/81; PULSE 75; TEMP 36.6; O2SAT 95
[2017-03-15] MEDS: ACETAMINOPHEN 325 MG TAB PO PRN (01:19)
[2017-03-15 04:09] VITALS: BP 143/74; PULSE 78; TEMP 36.4; O2SAT 96
[2017-03-15] MEDS ORDERED: LEVOTHYROXINE 25 MCG TAB PO SCH (06:00)
[2017-03-15 07:03] VITALS: BP 176/76; PULSE 69; TEMP 36.4; O2SAT 95
[2017-03-15] MEDS ORDERED: HydrALAZINE HCL 20 MG/ML VIAL IV. PRN (09:00)
[2017-03-15] MEDS ORDERED: FUROSEMIDE 20 MG TAB PO SCH (09:00)
[2017-03-15] MEDS ORDERED: ALLOPURINOL 100 MG TAB PO SCH (09:00)
[2017-03-15] MEDS ORDERED: METOPROLOL SUCC 50MG EXT REL TAB PO SCH (09:00)
[2017-03-15] MEDS ORDERED: CHOLECALCIFEROL 1000 INTER.UNIT TAB PO SCH (09:00)
[2017-03-15 09:25] LABS: BASO % 0.1 %; BASO ABS # 0.01 K/uL (0-0.2); COMPLETE YES; EOS % 0.2 %; HEMATOCRIT 37.7 % (37-47); IG% 0.5 %; LYMPH % 11.4 %; LYMPH ABS # 0.92 K/uL (1.2-3.4); MEAN CELL VOLUME 90.6 fL (80-100); MEAN CORPUSCULAR HEMOGLOBIN 31.7 pg (25-34); MONO % 3.6 %; NEUT % 84.2 %; PLATELET COUNT 203 K/uL (130-400); RED BLOOD COUNT 4.16 M/uL (4.2-5.4); WHITE BLOOD COUNT 8.07 K/uL (4.8-10.8)
[2017-03-15] MEDS: GABAPENTIN 300 MG CAP PO SCH (09:40)
[2017-03-15 09:53] LABS: BUN/CREATININE RATIO 22.3 (10-20); CALCIUM 9.2 mg/dl (8.5-10.1); CREATININE 0.63 mg/dl (0.60-1.20); POTASSIUM 3.9 mmol/L (3.5-5.1)
[2017-03-15] MEDS ORDERED: GLIP-197 PO ×2 (10:09)
--- NOTE | 2017-03-15 10:23 | Discharge Instructions ---
Discharge Instructions Date of Service Mar 15, 2017. Admission Reason for Admission: Common Bile Duct Stones, Mass Discharge Discharge Diagnosis / Problem: Common bile duct stone, pancreatic mass Discharge Goals Goal(s): Decrease discomfort, Improve function, Increase independence, Improve disease control, Improve nutritional status, Learn about illness, Diagnostic testing, Therapeutic intervention, Prevent Disease Progression Activity Recommendations Activity Limitations: resume your previous activity . Instructions / Follow-Up Instructions / Follow-Up Diabetes Glipizide 5 mg daily This medication can cause severe hypoglycemia (low sugar <70) Symptoms of hypoglycemic to watch for: nervousness, dizziness, trembling, sweating, hunger, weakness, palpitations, or any other concerning symptoms. If you start to experience any of these symptoms and/or your blood sugar is low, have something sugary and contact/seek a medical provider Please check your sugars 2 times daily (or as needed for above) and log sugars- if your sugars are consistently above 160-170, please call your PCP Resume all other regular home medications as prescribed. Dr. Govea has recommended, LOW FIBER/FULL LIQUID DIET, in small frequent intervals. If you experience any features of obstruction, fever, chills, development of jaundice, worsening abdominal pain, seek medical attention [facility] GI doctor in [place]: Dr. Evelin Acharya, FOLLOW-UPS: Please follow-up with your PCP within 5-7 days Please follow-up with Oncologist as scheduled Please follow-up/keep all of your subspecialty appointments Current Hospital Diet Patient's current hospital diet: Clear Liquid Diet, Diabetes Type 2 Diet Discharge Diet Recommended Diet: Full Liquid Diet, Low Fiber Diet Procedures Procedures Performed: EGD with Biopsy, Upper Endoscopic Ultrasonography with FNA Pending Studies Studies pending at discharge: yes List of pending studies: Pathology Laboratory Results Hemoglobin A1c Test 02/22/17 13:20 Range/Units Estimated Average Glucose 209 mg/dl Hemoglobin A1c 8.9 H 4.5-5.6 % Lipid Panel Test 02/22/17 13:20 Range/Units Triglycerides Level 214 H 0-150 mg/dl Cholesterol Level 145 0-200 mg/dl HDL Cholesterol 30 mg/dl Cholesterol/HDL Ratio 4.8 LDL Cholesterol, Calculated 72 mg/dl Medical Emergencies . Who to Call and When: Medical Emergencies: If at any time you feel your situation is an emergency, please call 911 immediately. . Non-Emergent Contact Non-Emergency issues call your: Primary Care Provider, [facility] Call Non-Emergent contact if: you have a fever, temperature is above 100.5, your pain is not controlled, your pain is worsening, your pain is unusual for you, your pain is concerning you, you have any medication questions . . "Provider Documentation" section prepared by Tiara Leonardo. . VTE Core Measure Inpt VTE Proph given/why not?: Treatment not indicated
[2017-03-15 10:29] VITALS: BP 176/76; PULSE 69; TEMP 36.4; O2SAT 95
--- NOTE | 2017-03-15 10:45 | Discharge Summary ---
Discharge Summary Date of Service Mar 15, 2017. Discharge Summary Admission Date: Mar 14, 2017 at 18:50 Discharge Date: Mar 15, 2017 Discharge Disposition: Home Principal Diagnosis: Gastric outlet obstruction Problems/Secondary Diagnoses: Pancreatic mass causing duodenal stricture gastric outlet obstruction: HTN Hypothyroidism Gout T2DM- hgbA1c 8.9% on 02/20/27 peripheral neuropathy GERD Immunizations: Have You Had Influenza Vaccine: N/A History of Tetanus Vaccine?: Yes History of Pneumococcal: No History of Hepatitis B Vaccine: No Procedures: EUS: Impression: - Normal esophagus. - A medium amount of food (residue) in the stomach. - Normal duodenal bulb. - Acquired duodenal stenosis. - There was no sign of significant pathology in the esophagus. - Endosonographic images of the stomach were unremarkable. - There was no sign of significant pathology in the duodenal bulb. - There was dilation in the common bile duct which measured up to 10 mm. - There was no evidence of significant pathology in the left lobe of the liver. - The pancreatic duct had a dilated endosonographic appearance in the genu of the pancreas, in the body of the pancreas and in the side branches of the pancreatic duct. The pancreatic duct measured up to 6 mm in diameter. - Pancreatic parenchymal abnormalities consisting of diffuse echogenicity and lobularity were noted in the genu of the pancreas and in the pancreatic body. Fine needle aspiration performed. Recommendation: - Observe patient in PACU for possible discharge same day. - Continue present medications. - Await cytology results. - [facility] Consultations: GI- Dr. Govea Medication Reconciliation New Medications: Glipizide (Glipizide Er) 5 Mg Tab 1 TAB PO DAILY for 30 Days, #30 TAB 5 Refills Continued Medications: Allopurinol (Allopurinol) 100 Mg Tab 400 MG PO DAILY "CUT MY PILL TO GET 400 MG" Cholecalciferol (Vitamin D) 1,000 Unit Tab 2000 UNITS PO DAILY Coenzyme Q10 (Ubidecarenone) (Coq-10) Unknown Strength Cap 1 CAP PO DAILY Cyanocobalamin (Vitamin B-12) Unknown Strength Tab 1 TAB PO DAILY Furosemide (Furosemide) 20 Mg Tab 20 MG PO DAILY Gabapentin (Gabapentin) 300 Mg Cap 300 MG PO BID Levothyroxine Sodium (Levothyroxine Sodium) 25 Mcg Tab 25 MCG PO DAILY Metoprolol Succinate (Toprol Xl) 100 Mg Tabcr 200 MG PO HS Multiple Vitamins W/ Minerals (Eye Vitamins) 1 Cap Cap 1 CAP PO DAILY Omeprazole (Prilosec) 20 Mg Capcr Unknown Dose PO DAILY, CAP Ondasetron Odt (Zofran Odt) 4 Mg Tab 4 MG SL Q4H PRN for Nausea or Vomiting, #30 TAB [Edarbi] () 40 MG PO DAILY MEDICATION DOES NOT COME UP IN SURESCRIPTS WHEN I SEARCH IT, BUT IT IS LISTED IN THE EXTENDED MED HISTORY 40 MG. Discontinued Medications: Promethazine Hcl (Phenergan) 12.5 Mg Tab 12.5 MG PO Q4H PRN for Nausea or Vomiting, #30 TAB Discharge Exam Review of Systems: Constitutional: No fever, No chills, No sweats, No weakness, No fatigue Eyes: No worsening of vision ENT: No hearing loss Respiratory: No cough, No shortness of breath, No hemoptysis Cardiovascular: No chest pain, No edema, No palpitations Abdomen: + pain (mild, epigastric ), No nausea, No vomiting, No diarrhea, No constipation Musculoskeletal: No joint pain, No muscle pain, No swelling, No calf pain Genitourinary - Female: No dysuria, No hematuria Neurologic: No weakness, No numbness/tingling Psychiatric: No depression symptoms, No anxiety Endocrine: No fatigue Hematologic / Lymphatic: No abnormal bleeding/bruising Integumentary: No rash, No itch, No new/changing skin lesions Physical Exam: General Appearance: no apparent distress Eyes: normal inspection, PERRL ENT: hearing grossly normal Neck: supple Respiratory/Chest: lungs clear, no respiratory distress, no accessory muscle use Cardiovascular: regular rate, rhythm Abdomen / GI: normal bowel sounds, soft, + tenderness (mild, epigsatric region ) Extremities: no calf tenderness, no pedal edema Neurologic/Psychiatric: alert, normal mood/affect, oriented x 3 Skin: normal color, warm/dry, no rash Hospital Course Admission H&P: 81 yo female who presented to the ED on 03/10 with 4 weeks of vomiting. She has been unable to keep significant amount of food down. Vomiting occurs almost after every meal. However, she must be keeping some food down because she has been moving her bowels, although less frequently and smaller, formed stools. She describes a sensation of being full, heartburn after meals and either vomiting or small spit up. She has lost 7 lbs unintentionally in the past 4 weeks. Never had an issue with vomiting prior to this. She admits to some intermittent associated epigastric pain. No fever but she will have chills. No choking or coughing after vomiting, no dyspnea. Presented here to the ED with the above complaints, extensive work up performed. 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 Today, Dr. Govea took for ERCP. However, the stricture at the duodenum was so severe that a scope could not be passed into the 2nd portion of the duodenum. There was significant amount of liquid and food in her stomach. EUS was performed at the gastric bulb and biopsies were taken. Dr. Govea asked to observe patient overnight and she can most likely go home first thing in the morning. Physical Exam Vital Signs Date Time Temp Pulse Resp B/P (MAP) Pulse Ox O2 Delivery O2 Flow Rate FiO2 03/14/17 22:17 36.5 83 16 175/92 (119) 97 Room Air 03/14/17 21:10 36.3 79 16 174/82 (112) 98 Room Air 03/14/17 20:50 36.4 81 16 170/80 (110) 96 Room Air 03/14/17 20:10 36.5 75 16 197/97 Room Air 03/14/17 20:10 36.5 75 16 197/97 (130) 98 Room Air 03/14/17 20:10 98 Room Air 03/14/17 19:45 77 18 174/94 98 Room Air 03/14/17 19:30 79 16 180/88 97 Room Air 03/14/17 19:15 74 14 150/90 97 Room Air 03/14/17 19:00 75 19 165/85 98 Room Air 03/14/17 18:45 79 19 181/91 97 Room Air 03/14/17 18:30 36.2 81 24 159/88 99 Room Air 03/14/17 18:20 80 21 174/86 97 Room Air 03/14/17 18:10 83 15 176/91 94 Room Air 03/14/17 18:00 85 16 188/99 100 Oxymask 10 03/14/17 17:50 88 17 153/80 100 Oxymask 10 03/14/17 17:41 36.0 94 24 179/102 100 Oxymask 10 03/14/17 13:22 36.8 83 18 179/96 (123) 98 Room Air General Appearance: no apparent distress, + thin Head: normocephalic, atraumatic Eyes: normal inspection, EOMI, sclerae normal ENT: normal ENT inspection, hearing grossly normal, pharynx normal Neck: supple, no adenopathy, no JVD, trachea midline Respiratory/Chest: chest non-tender, lungs clear, normal breath sounds, no respiratory distress, no accessory muscle use Cardiovascular: regular rate, rhythm, no edema, no gallop, no JVD, no murmur, normal peripheral pulses Abdomen/GI: normal bowel sounds, soft, no organomegaly, + tenderness ( epigastric) Back: normal inspection, no CVA tenderness, no muscle spasm, normal range of motion Extremities/Musculoskelatal: normal inspection, no calf tenderness, normal capillary refill, no pedal edema, normal range of motion Neurologic/Psych: vp hr diversity II-XII nml as tested, alert, normal mood/affect, normal reflexes, oriented x 3, + motor weakness Skin: normal color, warm/dry, no rash Hospital Course: 81 yo female with recent findings of pancreatic head mass causing gastric outlet obstruction, today she had EGD with plans for ERCP but could not be completed due to stricture/compression from mass in the duodenum Pancreatic mass causing duodenal stricture, gastric outlet obstruction: - Admitted to med/surg observation - ERCP cancelled since scope could not enter duodenum and EUS performed with biopsies taken- results pending, on 03/[address] Govea - On prior stay, she had CEA which was normal, CA 19-9 was 117 - Consulted GI, appreciate recommendations -- Dr. Govea recommends small, liquid meals/low fiber -- handouts/eduction given on diet recommendations -- Patient leaving for [place] on 03/16- Dr. Govea w/ GI doctor in [place] for any issues/concerns that may arise while patient is there HTN: Continue Edarbi 40 mg daily, Metoprolol 200 mg HS Hypothyroidism: Synthroid 25 mcg daily Gout: Continue Allopurinol T2DM- hgbA1c 8.9% on 02/20/27, peripheral neuropathy: - Was on Metformin 500 mg BID x2 weeks but discontinued due to GI upset; start Glipizide 5 mg daily- discussed check sugars twice daily and keeping log - Continue Gabapentin 300 mg BID GERD: Resume Prilosec at discharge DVT prophylaxis: Ambulation Code Status: LEVEL I, FULL Dispo: Discharge to home I agree with PA assessment and plan and have seen and examined pt myself Resting comfortably in bed VSS Labs reviewed ERCP cancelled as scope difficulty in passing through duodenum EUS with biopsies taken Rec small frequent liquid meals for diet Also place on glipizide 5mg daily in place of metformin F/U with herring armida on DC Stable for DC at this time Total Time Spent: Greater than 30 minutes This includes examination of the patient, discharge planning, medication reconciliation, and communication with other providers. Discharge Instructions Please refer to the electronic Patient Visit Report (Discharge Instructions) for additional information. Follow-Up Please follow-up with your PCP within 5-7 days Please follow-up with Oncology as scheduled Please follow-up/keep all of your subspecialty appointments Additional Copies To Brice Zelaya M.D.
--- NOTE | 2017-03-15 13:07 | Anesthesiology Progress Note ---
Anesthesia Post Op Note Date & Time Mar 15, 2017 at 10:06 Vital Signs Pain Intensity: 6.0 Vital Signs Past 12 Hours Date Time Temp Pulse Resp B/P (MAP) Pulse Ox O2 Delivery O2 Flow Rate FiO2 03/15/17 10:29 36.4 69 16 95 Room Air 03/15/17 08:30 Room Air 03/15/17 07:03 36.4 69 16 176/76 (109) 95 Room Air 03/15/17 04:09 36.4 78 16 143/74 (97) 96 Room Air Notes Mental Status: alert / awake / arousable, participated in evaluation Pt Amnestic to Procedure: Yes Nausea / Vomiting: adequately controlled Pain: adequately controlled Airway Patency, RR, SpO2: stable & adequate BP & HR: stable & adequate Hydration State: stable & adequate Anesthetic Complications: no major complications apparent
--- NOTE | 2017-03-20 15:20 | GASTROENTEROLOGY PROGRESS NOTE ---
DATE: 03/18/2017 This is a telephone note at 11:30 a.m. I contacted Mrs. Hopkins with the results of her EGD biopsy and EUS FNA results. The EGD samples of the duodenal stricture revealed marked duodenitis, but malignant features were not identified. The samples taken during her EUS with FNA revealed 1 group of cells that had an atypical appearance; however, as microscopically described as a single well preserve small flat sheet of atypical cells. However, a confirmatory diagnosis of malignancy could not be made and the specimen submitted. These results were discussed with the patient and her daughter Rimma. At this point, she is in [place] and visiting with family and will be returning to the [facility] shortly after the New Year. She has not had any vomiting, but is experiencing occasional abdominal pain similar to discomfort she experienced prior to her presentation to the Emergency Room. I instructed the patient to maintain a low residue diet, mostly full liquids with either Ensure Boost as solids may not be well tolerated with this high grade stricture. I will also fax a copy of the pathology results to the nurse coordinator 5 Eitan Alfonso, for her upcoming appointments with medical and surgical oncology on April 04. I also informed the patient that if she has any symptoms that seem to be progressing (fever, chills, vomiting, dehydration, worsening abdominal pain) that she should present to the Emergency Room in [place] and I had previously spoken with a merchandise worker, Dr. Acharya, possibly his office in that [facility] and is aware and is willing to see the patient if there are any symptoms that need to be readdressed either as an inpatient or outpatient. All questions answered. I also asked the patient to contact me or have her physicians at [place] [facility] contact me once I have had an opportunity evaluate her. In addition, I asked her to continue to monitor her sugars, at least twice daily to ensure that there is no hypoglycemia developing or significant hyperglycemia. Small frequent meals are likely to be best tolerated. All questions answered.
== END 2017-03-15 10:57 | disposition home or self-care (01) ==
LOC: C.ACU 12:45 → C.MSW 18:50 → ENRESERV 19:33
PROVIDERS: ADMIT Internal Medicine; ATTEND Hospitalist
DX: K31.5 Obstruction of duodenum (principal); K86.89 Other specified diseases of pancreas; K80.50 Calculus of bile duct without cholangitis or cholecystitis without obstruction; M19.90 Unspecified osteoarthritis, unspecified site; N18.3 Chronic kidney disease, stage 3 (moderate); M10.9 Gout, unspecified; I10 Essential (primary) hypertension; E03.9 Hypothyroidism, unspecified; K21.9 Gastro-esophageal reflux disease without esophagitis; Z87.442 Personal history of urinary calculi; Z87.891 Personal history of nicotine dependence; Z96.653 Presence of artificial knee joint, bilateral; Z91.041 Radiographic dye allergy status; Z90.49 Acquired absence of other specified parts of digestive tract; Z90.89 Acquired absence of other organs